=== PATIENT | female | born 1945 | race Caucasian/White ===

== ENCOUNTER 2016-10-13 09:15 | Inpatient (IN) | payer MEDICARE, OTHER ==
[2016-10-13 09:49] LABS: ABSOLUTE BASOPHILS # (AUTO) 0.1 10^3/uL (0.0-0.2); ABSOLUTE EOSINOPHILS # (AUTO) 0.1 10^3/uL (0.0-0.6); ABSOLUTE LYMPHOCYTES (AUTO) 1.2 10^3/uL (0.5-4.7); ABSOLUTE NEUT (AUTO) 9.4 10^3/uL (1.7-8.2); BASOPHILS % (AUTO) 0.5 % (0-2); EOSINOPHILS % (AUTO) 0.7 % (0-6); HEMATOCRIT 43.7 % (36.0-47.0); HEMOGLOBIN 15.1 g/dL (12.0-15.5); HGB HCT DIFFERENCE 1.6; LYMPHOCYTES % (AUTO) 9.8 % (13-45); MEAN CORPUSCULAR HEMOGLOBIN 31.9 pg (27.0-33.4); MEAN CORPUSCULAR HGB CONC 34.5 g/dL (32.0-36.0); MEAN CORPUSCULAR VOLUME 93 fl (80-97); MONOCYTES % (AUTO) 8.7 % (3-13); RED BLOOD COUNT 4.71 10^6/uL (3.72-5.28); RED CELL DISTRIBUTION WIDTH 13.1 % (11.5-14.0); SEGMENTED NEUTROPHILS % (AUTO) 80.3 % (42-78); WHITE BLOOD COUNT 11.7 10^3/uL (4.0-10.5)
[2016-10-13 09:52] LABS: PROTHROMBIN TIME 13.2 SEC (11.4-15.4)
[2016-10-13 10:11] LABS: VENOUS BLOOD BASE EXCESS 1.6 mmol/L; VENOUS BLOOD HCO3 26.3 mmol/L (20-32); VENOUS BLOOD PCO2 41.8 mmHg (35-63); VENOUS BLOOD PH 7.42 (7.30-7.42)
[2016-10-13 10:12] LABS: ALANINE AMINOTRANSFERASE 29 U/L (9-52); ALBUMIN 3.5 g/dL (3.5-5.0); ALKALINE PHOSPHATASE 207 U/L (38-126); ANION GAP 11 (5-19); ASPARTATE AMINO TRANSFERASE 19 U/L (14-36); BILIRUBIN,DIRECT 0.1 mg/dL (0.0-0.4); BILIRUBIN,TOTAL 0.7 mg/dL (0.2-1.3); BLOOD UREA NITROGEN 19 mg/dL (7-20); CALCIUM 9.5 mg/dL (8.4-10.2); CARBON DIOXIDE 29 mmol/L (22-30); CHLORIDE 103 mmol/L (98-107); CREATININE RESULT 0.65 mg/dL (0.52-1.25); GLUCOSE 124 mg/dL (75-110); POTASSIUM 5.2 mmol/L (3.6-5.0); SODIUM 143.1 mmol/L (137-145); TOTAL PROTEIN 5.9 g/dL (6.3-8.2)
[2016-10-13] MEDS ORDERED: ALBUTEROL SULFATE 0.083% NEB 2.5 MG/3 ML AMPUL NEB ONE (10:26)
--- NOTE | 2016-10-13 10:26 | ER Document Report ---
ED Respiratory Problem - General Mode of Arrival: Medic Information source: Patient, Emergency Med Personnel TRAVEL OUTSIDE OF THE [place] IN LAST 30 DAYS: No - HPI Patient complains to provider of: Cough Onset: Just prior to arrival Context: Smoker - former (quit 16 years ago). denies: Hx COPD Cough: Productive - aq Sputum amount: Small At home treatment: denies: Oxygen Associated symptoms: Other - see notes above <RICKIE ADAMSON - Last Filed: 10/13/16 13:54> <LISSETT DIEGO - Last Filed: 10/13/16 20:12> - General Chief Complaint: Shortness Of Breath Stated Complaint: SHORTNESS OF BREATH Notes: 71 year old female with history of hyperlipidemia, but no lung problems presents to the ED via EMS complaining of shortness of breath that is exacerbated with exertion which started earlier this morning. EMS reports the patient was saturating at 85% on room air (Patient is not oxygen dependent). Patient is additionally complaining of wheezing (especially when sleeping) and a productive cough with minimal amounts of sputum that has been present for 2-3 weeks, but has gotten worse over the past 6 days. Patient denies fever or chest pain, but reports that she occasionally feels chest pressure when walking. Patient explains that this chest pressure does not radiate into her arms. Patient states that she is not short of breath currently. She reports that she takes daily aspirin, vitamin B-12, and Crestor, but claims that she did not take her aspirin today. Patient denies any history of an MO or stent, but states that her younger brother had an MO last year. Patient's father had a history of congestive heart failure. (RICKIE ADAMSON) - Related Data Allergies/Adverse Reactions: diclofenac Allergy (Verified 10/13/16 11:28) doxycycline Allergy (Verified 10/13/16 11:28) Home Medications: Current Home Medications Albuterol Sulfate [Proair HFA Inhalation Aerosol 8.5 gm MDI] 2 puff IH Q4HP PRN 10/13/16 [History] Aspirin [Aspirin EC] 81 mg PO DAILY 10/13/16 [History] Cyanocobalamin (Vitamin B-12) [B-12] 1,000 mcg PO DAILY 10/13/16 [History] Fluticasone Propionate [Flonase Nasal [place] 50 Mcg/[place] 16 gm] 2 spray NASL DAILY 10/13/16 [History] Rosuvastatin Calcium [Crestor 10 mg Tablet] 10 mg PO DAILY 10/13/16 [History] Past Medical History - General Information source: Patient - Social History Smoking Status: Former Smoker - Quit 16 years ago Chew tobacco use (# tins/day): No Frequency of alcohol use: Occasional - 1-2 drinks a day Drug Abuse: None Family History: Other - Younger brother: MO (2016) Father: CHF - Past Medical History Cardiac Medical History: Reports: Hx Hypercholesterolemia Denies: Hx Heart Attack Pulmonary Medical History: Reports: None Endocrine Medical History: Denies: Hx Diabetes Mellitus Type 2 Past Surgical History: Denies: Hx Cardiac Catheterization, Hx Coronary Stent <RICKIE ADAMSON - Last Filed: 10/13/16 13:54> Review of Systems - Review of Systems Constitutional: No symptoms reported EENT: No symptoms reported Cardiovascular: No symptoms reported. denies: Chest pain - but reports chest pressure Respiratory: See HPI, Cough, Short of breath, Sputum - minimal, Wheezing. denies: Hemoptysis Gastrointestinal: No symptoms reported Genitourinary: No symptoms reported Female Genitourinary: No symptoms reported Musculoskeletal: No symptoms reported Skin: No symptoms reported Hematologic/Lymphatic: No symptoms reported Neurological/Psychological: No symptoms reported <RICKIE ADAMSON - Last Filed: 10/13/16 13:54> Physical Exam <RICKIE ADAMSON - Last Filed: 10/13/16 13:54> <LISSETT DIEGO - Last Filed: 10/13/16 20:12> - Vital signs Vitals: Temp Pulse Resp BP Pulse Ox 98.4 F 70 18 116/78 99 10/13/16 09:30 10/13/16 09:30 10/13/16 09:30 10/13/16 09:30 10/13/16 09:30 - Notes Notes: GENERAL: Alert, interacts well. No acute distress. HEAD: Normocephalic, atraumatic. EYES: Pupils equal, round, and reactive to light. Extraocular movements intact. ENT: Oral mucosa moist, tongue midline. NECK: Full range of motion. Supple. Trachea midline. LUNGS: Clear to auscultation bilaterally, no wheezes, rales, or rhonchi. No respiratory distress. Patient is saturating at 98% on non-rebreather (10L) with good wave form per interpretation from Dr. Diego. HEART: Regular rate and rhythm. No murmurs, gallops, or rubs. ABDOMEN: Soft, non-tender. Non-distended. EXTREMITIES: Moves all 4 extremities spontaneously. No edema, posterior tibialis and dorsalis pedis pulses 2/4 bilaterally. No cyanosis. NEUROLOGICAL: Alert and oriented x3. Normal speech. PSYCH: Normal affect, normal mood. SKIN: Warm, dry, normal turgor. No rashes or lesions noted. (RICKIE ADAMSON) Course - Laboratory Result Diagrams: 10/13/16 09:30 10/13/16 09:30 - Diagnostic Test Radiology reviewed: Image reviewed, Reports reviewed - Chest X-ray Impression: Small left pleural effusion is identified and I cannot exclude some associated atelectasis or infiltrate in the left lung base. Right lung is clear and well expanded. There is evidence for obstructive lung disease. Chest CT Impression : Bilateral pulmonary emboli are present. The clot burden is moderate. There is no saddle embolus. Evidence of pulmonary emphysema. There are marked chronic changes in the left lower lobe with possible superimposed pneumonia. Significant atelectasis is present in the left lower lobe. There is a small left pleural effusion. Consider follow-up CT after treatment to be certain that there is no mass. There is mild right hilar adenopathy. - EKG Interpretation by Ia EKG shows normal: Sinus rhythm, Early, Intervals. abnormal: ST-T Waves - T-wave inversion in V1-V3. No ST elevation or depression. Rate: Normal - Sinus rate at 83 P Waves: Other - poor P-waves - Consults [facility] Transfer Line Time consulted: 11:11 Dr. Almendarez Time consulted: 12:19 Dr. Mi Time consulted: 13:00 <RICKIE ADAMSON - Last Filed: 10/13/16 13:54> - Laboratory Result Diagrams: 10/13/16 09:30 10/13/16 09:30 <LISSETT DIEGO - Last Filed: 10/13/16 20:12> - Re-evaluation Re-evalutation: 10/13/16 11:04 Patient was informed that her troponin was elevated (0.155) and will be transferred to a another facility for a non-STEMI. Patient requested that she be transferred to [facility]. (RICKIE ADAMSON) 10/13/16 20:12 CBC shows slight leukocytosis, coags normal, blood gas unremarkable, CP shows slightly elevated potassium of 5.2, alkaline phosphatase somewhat elevated 207, cardiac enzymes show troponin leak of 0.155, CT scan of the chest was ordered after the chest x-ray showed possible atelectasis but no convincing evidence of pneumonia. CT angiogram of the chest showed bilateral pulmonary emboli with moderate clot burden. This explains the troponin leak. I rediscussed the patient with Dr. Almendarez from [facility] who agrees that the patient does not need to be transferred anymore as this is not a non-STEMI is simply troponin leak due to the stress of the bilateral pulmonary emboli. Discussed patient with Dr. Mi who agrees to accept the patient to her service, agrees with starting heparin drip. Discussed with the patient and she is agreeable to stay at this hospital. (LISSETT DIEGO) - Vital Signs Vital signs: Temp Pulse Resp BP Pulse Ox 98.2 F 97 19 111/72 95 10/13/16 16:42 10/13/16 16:42 10/13/16 18:21 10/13/16 18:21 10/13/16 18:21 - Laboratory Laboratory results interpreted by me: 10/13/16 10/13/16 10/13/16 09:30 09:30 09:30 WBC 11.7 H Seg Neutrophils % 80.3 H Lymphocytes % 9.8 L Absolute Neutrophils 9.4 H Potassium 5.2 H Glucose 124 H Alkaline Phosphatase 207 H Creatine Kinase 28 L Total Protein 5.9 L Urine Ketones 10/13/16 12:00 WBC Seg Neutrophils % Lymphocytes % Absolute Neutrophils Potassium Glucose Alkaline Phosphatase Creatine Kinase Total Protein Urine Ketones TRACE H - Consults [facility] Transfer Line Reason for consultation: 10/13/16 11:11 [facility] Transfer Line was called regarding transfer of the patient (non- STEMI). Informed that the patient will be placed on a wait list. (RICKIE ADAMSON) Dr. Almendarez Reason for consultation: 10/13/16 12:19 Patient was discussed with Dr. Almendarez and accepts her on the wait list. Dr. Almendarez states that they have patients up for discharge today, so they expect back to have a bed open later today. 10/13/16 12:59 After the patient was diagnosed with bilateral pulmonary emboli, Dr. Almendarez was called and reports that the patient will no longer need to be transferred to [facility] and to go ahead and admit the patient at [facility]. (RICKIE ADAMSON) Dr. Mi Reason for consultation: 10/13/16 13:[address] Almendarez from [facility], the patient was discussed with Dr. Mi and she agrees to admit the patient. (RICKIE ADAMSON) Critical Care Note - Critical Care Note Total time excluding time spent on procedures (mins): 35 <RICKIE ADAMSON - Last Filed: 10/13/16 13:54> <LISSETT DIEGO - Last Filed: 10/13/16 20:12> - Critical Care Note Comments: Patient was treated for hypoxemia, a troponin bump, and the bilateral pulmonary emboli. (RICKIE ADAMSON) Discharge <RICKIE ADAMSON - Last Filed: 10/13/16 13:54> - Discharge Admitting Provider: Ynes Mi Unit Admitted: ICU <LISSETT DIEGO - Last Filed: 10/13/16 20:12> - Discharge Clinical Impression: Bilateral pulmonary embolism, Elevated troponin, Hypoxia Condition: Serious Disposition: ADMITTED INPATIENT Scribe Attestation: 10/13/16 20:12 I personally performed the services described in the documentation, reviewed and edited the documentation which was dictated to the scribe in my presence, and it accurately records my words and actions. (LISSETT DIEGO) Scribe Documentation - Scribe Written by Evan:: Evan Quach, 10/13/2016 1158 acting as scribe for :: Johnathon <RICKIE ADAMSON - Last Filed: 10/13/16 13:54>
[2016-10-13 10:44] LABS: CREATINE KINASE MB 1.64 ng/mL (<4.55)
[2016-10-13 10:46] LABS: TROPONIN I 0.155 ng/mL
[2016-10-13] MEDS ORDERED: ASPIRIN 325 MG TABLET PO ONE (11:10)
[2016-10-13 12:18] LABS: APPEARANCE,URINE CLEAR; BILIRUBIN,URINE NEGATIVE (NEGATIVE); GLUCOSE, URINE NEGATIVE (NEGATIVE); KETONES,URINE TRACE mg/dL (NEGATIVE); LEUKOCYTE ESTERASE,URINE NEGATIVE (NEGATIVE); NITRITE,URINE NEGATIVE (NEGATIVE); PROTEIN,URINE NEGATIVE (NEGATIVE); UROBILINOGEN,URINE NEGATIVE mg/dL (<2.0)
[2016-10-13] MEDS ORDERED: HEPARIN SOD (PORCINE) 1,000 UNIT/ML 10 ML VIAL IV PRN ×2 (13:09→14:12)
[2016-10-13] MEDS ORDERED: HEPARIN SOD (PORCINE) 1,000 UNIT/ML 10 ML VIAL IV ONE (13:09)
[2016-10-13] MEDS ORDERED: HEPARIN SODIUM,PORCINE/D5W 250 ML IV PRN ×2 (13:09→14:12)
--- NOTE | 2016-10-13 13:35 | EKG REPORT ---
SEVERITY:- ABNORMAL ECG - SINUS RHYTHM BORDERLINE R WAVE PROGRESSION, ANTERIOR LEADS NONSPECIFIC T ABNORMALITIES, ANTERIOR LEADS : Confirmed by: Yon Soria MD 13-Oct-2016 13:34:15
[2016-10-13] MEDS ORDERED: ONDANSETRON HCL INJ/PF 4 MG/2 ML SDV IV PRN (14:04)
[2016-10-13] MEDS ORDERED: IPRATROPIUM/ALBUTEROL 0.5-2.5 MG/3 ML AMPUL NEB PRN (14:04)
[2016-10-13] MEDS ORDERED: MAG HYDROX/AL HYDROX/SIMETH SUSP 30 ML UDCUP PO PRN (14:04)
[2016-10-13] MEDS ORDERED: ACETAMINOPHEN 325 MG TABLET PO PRN (14:04)
[2016-10-13] MEDS ORDERED: OXYCODONE-ACETAMINOPHEN 5-325 MG TABLET PO PRN (14:04)
[2016-10-13] MEDS ORDERED: FLUTICASONE NASAL SPRAY 50 MCG/SPRY 120 SPRAY/16 GM NASL PRN (14:13)
[2016-10-13] MEDS ORDERED: MORPHINE SULFATE 10 MG/ML INJ IV PRN (14:20)
--- NOTE | 2016-10-13 16:36 | PDOC H&P ---
History of Present Illness Admission Date/PCP: 10/13/16 13:56 PAUL CLINE MD History of Present Illness: GREYSON MCADAMS is a 71 year old female with a history of hyperlipidemia who presents to the emergency department with approximately one week of progressive shortness of breath. Patient reports that she's been unable to get her breath and she's been able to ambulate without becoming short of breath. She reports episodes of her heart racing. She denies any fevers or chills but for the same amount of time has had a dry cough for about 7 days. She reports normally she is quite active. Apparently one month ago she had some difficulty with her allergies which she found unusual as she has lived here for the last 30 years. She did have resolution of her shortness of breath at that time with Flonase. Patient also reports having been evaluated in the past by Dr. Ford of cardiology for SVT. Here in the emergency department, patient is found to have an elevated troponin very mildly and a CTA that is positive for bilateral PEs with moderate clot burden. She is referred to hospital service for evaluation and treatment. Past Medical History Cardiac Medical History: Reports: Hyperlipidema Denies: Myocardial Infarction Pulmonary Medical History: Reports: None, Asthma Endocrine Medical History: Denies: Diabetes Mellitus Type 2 Past Surgical History Past Surgical History: Reports: None Denies: Cardiac Catheterization, Coronary Stent Social History Smoking Status: Former Smoker - Quit 16 years ago Cigarettes Packs Per Day: 2 Number of Years Smokin Frequency of Alcohol Use: Social Amount of Alcoholic Beverages Per Day: 1-2 drinks daily Hx Recreational Drug Use: No Hx Prescription Drug Abuse: No - Advance Directive Resuscitation Status: Full Code Surrogate healthcare decision maker:: Significant other Ramiro Snowden Family History Family History: CAD, Other - Younger brother: PA (2016) Father: CHF Mother was on blood thinners Parental Family History Reviewed: Yes Children Family History Reviewed: Yes Sibling(s) Family History Reviewed.: Yes Medication/Allergy Home Medications: Albuterol Sulfate [Proair HFA Inhalation Aerosol 8.5 gm MDI] 2 puff IH Q4HP PRN 10/13/16 Aspirin [Aspirin EC] 81 mg PO DAILY 10/13/16 Cyanocobalamin (Vitamin B-12) [B-12] 1,000 mcg PO DAILY 10/13/16 Fluticasone Propionate [Flonase Nasal [place] 50 Mcg/[place] 16 gm] 2 spray NASL DAILY 10/13/16 Rosuvastatin Calcium [Crestor 10 mg Tablet] 10 mg PO DAILY 10/13/16 Allergies/Adverse Reactions: diclofenac Allergy (Verified 10/13/16 11:28) doxycycline Allergy (Verified 10/13/16 11:28) Review of Systems Constitutional: PRESENT: fatigue. ABSENT: chills, fever(s), headache(s), weight gain, weight loss Eyes: ABSENT: visual disturbances Ears: ABSENT: hearing changes Cardiovascular: PRESENT: chest pain, dyspnea on exertion, orthropnea, palpitations. ABSENT: edema Respiratory: PRESENT: cough, dyspnea. ABSENT: hemoptysis, sputum Gastrointestinal: PRESENT: constipation. ABSENT: abdominal pain, diarrhea, hematemesis, hematochezia, nausea, vomiting Genitourinary: ABSENT: dysuria, hematuria Musculoskeletal: ABSENT: joint swelling Integumentary: ABSENT: rash, wounds Neurological: ABSENT: abnormal gait, abnormal speech, confusion, dizziness, focal weakness, syncope Psychiatric: ABSENT: anxiety, depression, homidical ideation, suicidal ideation Endocrine: ABSENT: cold intolerance, heat intolerance, polydipsia, polyuria Hematologic/Lymphatic: ABSENT: easy bleeding, easy bruising Physical Exam Vital Signs: Temp Pulse Resp BP Pulse Ox 98.4 F 70 14 129/74 H 95 10/13/16 09:30 10/13/16 09:30 10/13/16 12:06 10/13/16 12:06 10/13/16 12:06 Intake & Output 10/12/16 10/13/16 10/14/16 06:59 06:59 06:59 Weight 61.4 kg General appearance: PRESENT: severe distress, well-developed, well-nourished Head exam: PRESENT: atraumatic, normocephalic Eye exam: PRESENT: conjunctiva pink, EOMI, PERRLA. ABSENT: scleral icterus Ear exam: PRESENT: normal external ear exam Mouth exam: PRESENT: dry mucosa, tongue midline Neck exam: ABSENT: JVD, lymphadenopathy, thyromegaly, tracheal deviation Respiratory exam: PRESENT: accessory muscle use, crackles - Left lower lobe, symmetrical, tachypnea. ABSENT: clear to auscultation saad, rales, rhonchi, wheezes Cardiovascular exam: PRESENT: RRR, +S1, +S2, tachycardia. ABSENT: diastolic murmur, gallop, rubs, systolic murmur Pulses: PRESENT: normal dorsalis pedis pul Vascular exam: PRESENT: normal capillary refill GI/Abdominal exam: PRESENT: normal bowel sounds, soft. ABSENT: distended, firm , guarding, mass, organolmegaly, rebound, rigid, tenderness Rectal exam: PRESENT: deferred Extremities exam: PRESENT: full ROM. ABSENT: calf tenderness, clubbing, pedal edema, tenderness Neurological exam: PRESENT: alert, awake, oriented to person, oriented to place , oriented to time, oriented to situation, CN II-XII grossly intact. ABSENT: motor sensory deficit Psychiatric exam: PRESENT: anxious, appropriate affect, normal mood. ABSENT: homicidal ideation, suicidal ideation Skin exam: PRESENT: dry, intact, warm. ABSENT: cyanosis, rash Results Laboratory Results: 10/13/16 10/13/16 10/13/16 09:30 09:30 09:30 WBC 11.7 H Hgb 15.1 Hct 43.7 Plt Count 275 INR 0.97 VBG pH VBG pCO2 VBG HCO3 VBG Base Excess Sodium 143.1 Potassium 5.2 H Chloride 103 Carbon Dioxide 29 Anion Gap 11 BUN 19 Creatinine 0.65 Glucose 124 H Lactic Acid Calcium 9.5 Magnesium Total Bilirubin 0.7 Direct Bilirubin 0.1 AST 19 ALT 29 Alkaline Phosphatase 207 H Creatine Kinase CK-MB (CK-2) Troponin I Total Protein 5.9 L Albumin 3.5 Ur Specific [place] 10/13/16 10/13/16 10/13/16 09:30 09:30 09:30 WBC Hgb Hct Plt Count INR VBG pH VBG pCO2 VBG HCO3 VBG Base Excess Sodium Potassium Chloride Carbon Dioxide Anion Gap BUN Creatinine Glucose Lactic Acid Calcium Magnesium 2.2 Total Bilirubin Direct Bilirubin AST ALT Alkaline Phosphatase Creatine Kinase 28 L CK-MB (CK-2) 1.64 Troponin I 0.155 Total Protein Albumin Ur Specific [place] 10/13/16 10/13/16 10/13/16 09:45 09:45 12:00 WBC Hgb Hct Plt Count INR VBG pH 7.42 VBG pCO2 41.8 VBG HCO3 26.3 VBG Base Excess 1.6 Sodium Potassium Chloride Carbon Dioxide Anion Gap BUN Creatinine Glucose Lactic Acid 1.6 Calcium Magnesium Total Bilirubin Direct Bilirubin AST ALT Alkaline Phosphatase Creatine Kinase CK-MB (CK-2) Troponin I Total Protein Albumin Ur Specific [place] 1.030 Impressions: Chest X-Ray 10/13/16 09:18 IMPRESSION: Small left pleural effusion is identified and I cannot exclude some associated atelectasis or infiltrate in the left lung base. Right lung is clear and well expanded. There is evidence for obstructive lung disease. Chest/Abdomen CTA 10/13/16 11:08 IMPRESSION: 1. Bilateral pulmonary emboli are present. The clot burden is moderate. There is no saddle embolus. 2. Pulmonary emphysema. 3. There are marked chronic changes in the left lower lobe with possible superimposed pneumonia. Significant atelectasis is present in the left lower lobe. There is a small left pleural effusion. Consider follow-up CT after treatment to be certain that there is no mass. 3. There is mild right hilar adenopathy. Assessment & Plan - Diagnosis (1) Bilateral pulmonary embolism Is this a current diagnosis for this admission?: YesPlan: Patient will be admitted to the ICU due to her elevated troponin as well as her increased oxygen needs as she is on a simple mask. Will obtain a stat echo. Patient started on treatment dose heparin. Will consult hematology oncology for their input. Suspect peripheral clot. Will obtain bilateral lower Doppler. Morphine for pain. (2) Elevated troponin Is this a current diagnosis for this admission?: YesPlan: Likely secondary to right ventricular heart strain. Will consult cardiology. Will obtain echocardiogram. Will trend serial cardiac enzymes. Patient will be on heparin drip. Patient has received aspirin. Will place on daily aspirin. Continue patient's home Lipitor. At this time, patient's relative hypotension is a contraindication to any antihypertensives for possible non-STEMI. (3) Acute hypoxemic respiratory failure Is this a current diagnosis for this admission?: YesPlan: Continue oxygen to maintain oxygen saturation greater than 95%. (4) Leukocytosis Qualifiers: Leukocytosis type: unspecified Qualified Code(s): D72.829 - Elevated white blood cell count, unspecified Is this a current diagnosis for this admission?: YesPlan: This is likely stress reaction to her clot. (5) Dehydration, mild Is this a current diagnosis for this admission?: YesPlan: Patient with mild dehydration evidenced by ketonuria and high specific gravity. Will begin patient on IV fluids judiciously. (6) SVT (supraventricular tachycardia) Is this a current diagnosis for this admission?: YesPlan: Patient reports a history of SVT for which she takes no medication. She reports she's been evaluated by an division officer weapons department. She was offered surgical intervention at that time her medication and she declined both. We will watch patient closely in the ICU. Will consult cardiology. - Time Time Spent: 50 to 70 Minutes Critical Time spent with patient: 35 or more minutes - Inpatient Certification Based on my medical assessment, after consideration of the patient's comorbidities, presenting symptoms, or acuity I expect that the services needed warrant INPATIENT care.: Yes I certify that my determination is in accordance with my understanding of Medicare's requirements for reasonable and necessary INPATIENT services [42 CFR 412.3e].: Yes Medical Necessity: Need For Continuous Telemetry Monitoring, Risk of Complication if Not Cared For in Hospital Post Hospital Care: D/C Travel Attendants Documentation
[2016-10-13] MEDS: DOCUSATE SODIUM 100 MG CAPSULE PO SCH (18:01)
[2016-10-13] MEDS: NORMAL SALINE 1000 ML 1,000 ML IV PRN (18:02)
--- NOTE | 2016-10-13 18:49 | XCELERA REPORT ---
[address] [address] Transthoracic Echocardiogram Report Name: GREYSON MCADAMS Age: 71 yrs Gender: Female : 1945 Patient Status: Inpatient Patient Location: \S\[facility]\S\A Study Date: 10/13/2016 02:42 PM Height: 66 in Weight: 135 lb BSA: 1.7 m2 Procedure: A complete two-dimensional transthoracic echocardiogram was performed (2D, M-mode, spectral and color flow Doppler). The study was technically difficult with many images being suboptimal in quality. Reason For Study: lauren aleman PE Ordering Physician: BRANDEN CONKLIN Performed By: Theo Escobar Interpretation Summary The left ventricular ejection fraction is normal. There is normal left ventricular wall thickness. Doppler measurements suggest pseudonormalized left ventricular relaxation, which is associated with grade II/IV or mild to moderate diastolic dysfunction The left ventricle is grossly normal size. Wall motion cannot be accurately commented on, but no definite regional wall motion abnormalities noted. The right ventricle is moderately dilated. The right ventricular systolic function is mildly reduced. The right ventricle appears to be hypertrophied The left atrial size is normal. The right atrium is mildly dilated. There is no mitral valve stenosis. There is a trace amount of mitral regurgitation No aortic regurgitation is present. There is no aortic valve stenosis There is a mild amount of tricuspid regurgitation There is moderate pulmonary hypertension by echo Right ventricular systolic pressure is estimated to be elevated at 50- 60mmHg. The aortic root is not well visualized but is probably normal size. The inferior vena cava appeared normal and decreased > 50% with respiration (RAP 5-10 mmHg) Minimal pericardial effusion. MMode/2D Measurements \T\ Calculations RVDd: 2.7 cm LVIDd: 4.7 cm FS: 39.2 % Ao root diam: 2.6 cm IVSd: 0.68 cm LVIDs: 2.9 cm EDV(Teich): 104.8 ml LVPWd: 0.69 cm ESV(Teich): 31.9 ml Ao root area: 5.4 cm2 EF(Teich): 69.6 % LA dimension: 3.0 cm Doppler Measurements \T\ Calculations MV E max oral: MV P1/2t max oral: Ao V2 max: LV V1 max P.1 cm/sec 63.2 cm/sec 132.3 cm/sec 2.6 mmHg MV A max oral: MV P1/2t: 64.1 msec Ao max PG: LV V1 max: 92.7 cm/sec 7.0 mmHg 81.2 cm/sec MV E/A: 0.69 MVA(P1/2t): 3.4 cm2 MV dec slope: 289.0 cm/sec2 PA V2 max: TR max oral: RAP systole: 80.5 cm/sec 349.4 cm/sec 10.0 mmHg PA max PG: TR max P.8 mmHg 2.6 mmHg RVSP(TR): 58.8 mmHg Left Ventricle The left ventricle is grossly normal size. There is normal left ventricular wall thickness. The left ventricular ejection fraction is normal. Doppler measurements suggest pseudonormalized left ventricular relaxation, which is associated with grade II/IV or mild to moderate diastolic dysfunction. Wall motion cannot be accurately commented on, but no definite regional wall motion abnormalities noted. Right Ventricle The right ventricle is moderately dilated. The right ventricle appears to be hypertrophied. The right ventricular systolic function is mildly reduced. Atria The right atrium is mildly dilated. The left atrial size is normal. Interarterial septum not well visualized and not well dopplered. Cannot comment on ASD/PFO presence. Mitral Valve The mitral valve is grossly normal. There is no mitral valve stenosis. There is a trace amount of mitral regurgitation. Aortic Valve The aortic valve is grossly normal. There is no aortic valve stenosis. No aortic regurgitation is present. Tricuspid Valve The tricuspid valve is not well visualized secondary to technical limitations. There is no tricuspid stenosis. There is a mild amount of tricuspid regurgitation. There is moderate pulmonary hypertension by echo. Right ventricular systolic pressure is estimated to be elevated at 50- 60mmHg. Pulmonic Valve The pulmonic valve is not well visualized. Great Vessels The aortic root is not well visualized but is probably normal size. The inferior vena cava appeared normal and decreased > 50% with respiration (RAP 5-10 mmHg). Effusions Minimal pericardial effusion. : BRANDEN CONKLIN > Raul Valero
--- NOTE | 2016-10-13 20:22 | PDOC CONSULTATION ---
Consultation Consult Date: 10/13/16 Attending physician:: BRANDEN CONKLIN Consult reason:: Pulmonary embolism History of Present Illness Admission Date/PCP: 10/13/16 14:05 PAUL CLINE MD Patient complains of: Dyspnea and palpitations History of Present Illness: GREYSON MCADAMS is a 71 year old female with a history of hyperlipidemia who presents to the emergency department with approximately one week of progressive shortness of breath. Patient reports that she's been unable to get her breath and she's been able to ambulate without becoming short of breath. She reports episodes of her heart racing. She denies any fevers or chills but for the same amount of time has had a dry cough for about 7 days. She reports normally she is quite active. Apparently one month ago she had some difficulty with her allergies which she found unusual as she has lived here for the last 30 years. She did have resolution of her shortness of breath at that time with Flonase. Patient also reports having been evaluated in the past by Dr. Ford of cardiology for SVT. Here in the emergency department, patient is found to have an elevated troponin very mildly and a CTA that is positive for bilateral PEs with moderate clot burden. Past Medical History Cardiac Medical History: Reports: Hyperlipidema Denies: Myocardial Infarction Pulmonary Medical History: Reports: None, Asthma Endocrine Medical History: Denies: Diabetes Mellitus Type 2 Past Surgical History Past Surgical History: Reports: None Denies: Cardiac Catheterization, Coronary Stent Social History Information Source: Patient Smoking Status: Former Smoker - Quit 16 years ago Cigarettes Packs Per Day: 2 Number of Years Smokin Frequency of Alcohol Use: Occasional Hx Recreational Drug Use: No Hx Prescription Drug Abuse: No - Advance Directive Resuscitation Status: Full Code Surrogate healthcare decision maker:: Patient's Family History Family History: Reviewed & Not Pertinent, Other - Younger brother: [place] (2016) Father: CHF Parental Family History Reviewed: Yes Children Family History Reviewed: Yes Sibling(s) Family History Reviewed.: Yes Medication/Allergy Home Medications: Albuterol Sulfate [Proair HFA Inhalation Aerosol 8.5 gm MDI] 2 puff IH Q4HP PRN 10/13/16 Aspirin [Aspirin EC] 81 mg PO DAILY 10/13/16 Cyanocobalamin (Vitamin B-12) [B-12] 1,000 mcg PO DAILY 10/13/16 Fluticasone Propionate [Flonase Nasal Pelham 50 Mcg/P[place]ham 16 gm] 2 spray NASL DAILY 10/13/16 Rosuvastatin Calcium [Crestor 10 mg Tablet] 10 mg PO DAILY 10/13/16 Allergies/Adverse Reactions: diclofenac Allergy (Verified 10/13/16 11:28) doxycycline Allergy (Verified 10/13/16 11:28) Review of Systems Constitutional: ABSENT: chills, fever(s), headache(s), weight gain, weight loss Eyes: ABSENT: visual disturbances Ears: ABSENT: hearing changes Cardiovascular: PRESENT: dyspnea on exertion, orthropnea, palpitations. ABSENT : chest pain, edema Respiratory: ABSENT: cough, hemoptysis Gastrointestinal: ABSENT: abdominal pain, constipation, diarrhea, hematemesis, hematochezia, nausea, vomiting Genitourinary: ABSENT: dysuria, hematuria Musculoskeletal: ABSENT: joint swelling Integumentary: ABSENT: rash, wounds Neurological: ABSENT: abnormal gait, abnormal speech, confusion, dizziness, focal weakness, syncope Psychiatric: ABSENT: anxiety, depression, homidical ideation, suicidal ideation Endocrine: ABSENT: cold intolerance, heat intolerance, polydipsia, polyuria Hematologic/Lymphatic: ABSENT: easy bleeding, easy bruising Physical Exam Vital Signs: Temp Pulse Resp BP Pulse Ox 98.2 F 89 19 111/72 95 10/13/16 16:42 10/13/16 20:00 10/13/16 18:21 10/13/16 18:21 10/13/16 18:21 Intake & Output 10/12/16 10/13/16 10/14/16 06:59 06:59 06:59 Intake Total 262 Balance 262 Weight 60.8 kg General appearance: PRESENT: no acute distress, well-developed, well-nourished Head exam: PRESENT: atraumatic, normocephalic Eye exam: PRESENT: conjunctiva pink, EOMI, PERRLA. ABSENT: scleral icterus Ear exam: PRESENT: normal external ear exam Mouth exam: PRESENT: moist, tongue midline Neck exam: ABSENT: carotid bruit, JVD, lymphadenopathy, thyromegaly Respiratory exam: PRESENT: wheezes. ABSENT: rales, rhonchi Cardiovascular exam: PRESENT: RRR, systolic murmur. ABSENT: diastolic murmur, rubs Pulses: PRESENT: normal dorsalis pedis pul, +1 pedal pulses bilateral Vascular exam: PRESENT: normal capillary refill GI/Abdominal exam: PRESENT: normal bowel sounds, soft. ABSENT: distended, guarding, mass, organolmegaly, rebound, tenderness Rectal exam: PRESENT: deferred Extremities exam: PRESENT: full ROM. ABSENT: calf tenderness, clubbing, pedal edema Musculoskeletal exam: ABSENT: ambulatory, deformity, dislocation, full ROM, normal inspection, tenderness, other Neurological exam: PRESENT: alert, awake, oriented to person, oriented to place , oriented to time, oriented to situation, CN II-XII grossly intact. ABSENT: motor sensory deficit Psychiatric exam: PRESENT: appropriate affect, normal mood. ABSENT: homicidal ideation, suicidal ideation Skin exam: PRESENT: dry, intact, warm. ABSENT: cyanosis, rash Results EKG Comments: NSR, minor non specific T inversion V1-V3 Impressions: Venous Doppler Study 10/13/16 00:00 IMPRESSION: Hypoechoic clot in 1 of the paired right gastrocnemius veins in the calf. Remainder of the bilateral lower extremity venous Doppler study is otherwise unremarkable Chest X-Ray 10/13/16 09:18 IMPRESSION: Small left pleural effusion is identified and I cannot exclude some associated atelectasis or infiltrate in the left lung base. Right lung is clear and well expanded. There is evidence for obstructive lung disease. Chest/Abdomen CTA 10/13/16 11:08 IMPRESSION: 1. Bilateral pulmonary emboli are present. The clot burden is moderate. There is no saddle embolus. 2. Pulmonary emphysema. 3. There are marked chronic changes in the left lower lobe with possible superimposed pneumonia. Significant atelectasis is present in the left lower lobe. There is a small left pleural effusion. Consider follow-up CT after treatment to be certain that there is no mass. 3. There is mild right hilar adenopathy. Assessment & Plan - Diagnosis (1) Acute hypoxemic respiratory failure Is this a current diagnosis for this admission?: Yes (2) Bilateral pulmonary embolism Is this a current diagnosis for this admission?: Yes (3) Elevated troponin Is this a current diagnosis for this admission?: Yes (4) Tachycardia Is this a current diagnosis for this admission?: Yes - Notes Notes: Troponin I elevation is related to bilateral pulmonary embolism. 2-D echo shows enlarged right ventricle and right ventricular strain on EKG. Agree with current management plans. Patient may benefit from a nuclear stress test but this will be scheduled as an outpatient. Acute hypoxic respiratory failure: Continue oxygen supplementation. This is due to combination of COPD/emphysema and pulmonary embolism. Bilateral pulmonary embolism: Probably acute. No definite precipitating factors noted except for age. May consider hematologic assessment. Tachycardia: Review of EKG strip shows just sinus tachycardia. Most likely secondary to respiratory failure and pulmonary embolism. Recommend adequate oxygenation. May consider calcium channel max such as Cardizem if needed. As usual I thank Dr. Mi very much for the kind referral. - Time Time Spent: 30 to 50 Minutes - CODE STATUS was discussed, patient remains full code. Surrogate decision-maker patient's . Multiple medical problems were addressed.More than 50% of the time spent coordinating care, discussing management plans with involved caregivers. Management plans discussed with involved personnels. Medical decision making was of moderate to high complexity , patient's has multiple severe comorbidities. Medications reviewed and adjusted accordingly: Yes
[2016-10-13 20:37] LABS: PROTHROMBIN TIME 14.6 SEC (11.4-15.4)
[2016-10-13 21:05] LABS: CREATINE KINASE MB 1.6 ng/mL (<4.55); TROPONIN I 0.129 ng/mL
[2016-10-13] MEDS: ATORVASTATIN CALCIUM 10 MG TABLET PO SCH (21:34)
[2016-10-13] MEDS: ALPRAZOLAM 0.25 MG TABLET PO PRN (21:34)
[2016-10-13 21:54] LABS: PARTIAL THROMBOPLASTIN TIME > 235.0 SEC (23.5-35.8)
[2016-10-14 02:36] LABS: CREATINE KINASE MB 1.35 ng/mL (<4.55); TROPONIN I 0.084 ng/mL
[2016-10-14 03:58] LABS: ABSOLUTE BASOPHILS # (AUTO) 0.1 10^3/uL (0.0-0.2); ABSOLUTE EOSINOPHILS # (AUTO) 0.2 10^3/uL (0.0-0.6); ABSOLUTE LYMPHOCYTES (AUTO) 1.4 10^3/uL (0.5-4.7); ABSOLUTE MONOCYTES (AUTO) 1.1 10^3/uL (0.1-1.4); ABSOLUTE NEUT (AUTO) 7.2 10^3/uL (1.7-8.2); BASOPHILS % (AUTO) 0.6 % (0-2); EOSINOPHILS % (AUTO) 1.9 % (0-6); HEMATOCRIT 36.7 % (36.0-47.0); HGB HCT DIFFERENCE 0.8; LYMPHOCYTES % (AUTO) 13.8 % (13-45); MEAN CORPUSCULAR HEMOGLOBIN 31.7 pg (27.0-33.4); MEAN CORPUSCULAR HGB CONC 34.2 g/dL (32.0-36.0); MEAN CORPUSCULAR VOLUME 93 fl (80-97); RED BLOOD COUNT 3.95 10^6/uL (3.72-5.28); RED CELL DISTRIBUTION WIDTH 13.3 % (11.5-14.0); SEGMENTED NEUTROPHILS % (AUTO) 72.7 % (42-78); WHITE BLOOD COUNT 9.9 10^3/uL (4.0-10.5)
[2016-10-14 04:11] LABS: HEMOGLOBIN 12.5 g/dL (12.0-15.5)
[2016-10-14 04:15] LABS: ALANINE AMINOTRANSFERASE 31 U/L (9-52); ALBUMIN 2.9 g/dL (3.5-5.0); ALKALINE PHOSPHATASE 176 U/L (38-126); ANION GAP 9 (5-19); ASPARTATE AMINO TRANSFERASE 16 U/L (14-36); BILIRUBIN,DIRECT 0.2 mg/dL (0.0-0.4); BILIRUBIN,TOTAL 0.6 mg/dL (0.2-1.3); BLOOD UREA NITROGEN 18 mg/dL (7-20); CALCIUM 8.6 mg/dL (8.4-10.2); CARBON DIOXIDE 26 mmol/L (22-30); CHLORIDE 107 mmol/L (98-107); CREATININE RESULT 0.65 mg/dL (0.52-1.25); GLUCOSE 110 mg/dL (75-110); SODIUM 141.5 mmol/L (137-145); TOTAL PROTEIN 5.2 g/dL (6.3-8.2)
[2016-10-14 04:29] LABS: POTASSIUM 4.1 mmol/L (3.6-5.0)
[2016-10-14] MEDS: LANSOPRAZOLE 15 MG TAB.RAP.DR PO SCH (05:09)
[2016-10-14] MEDS: NORMAL SALINE 1000 ML 1,000 ML IV PRN (05:10)
[2016-10-14 08:38] LABS: CREATINE KINASE MB 1.55 ng/mL (<4.55); TROPONIN I 0.067 ng/mL
--- NOTE | 2016-10-14 09:18 | PDOC PROGRESS REPORT ---
Subjective Progress Note for:: 10/14/16 Subjective:: Patient seems to be doing better with gradual improvement. Patient still short of breath but significantly improved. Pt is denying any chest arm or neck discomfort. Patient denying any PND, orthopnea. Patient denied any sustained palpitations, dizziness, syncope, near syncope. Patient denying any fever chills. Patient denying any other significant discomfort. Patient is maintaining sinus rhythm. Intermittent sinus tachycardia noted. Review of systems: Rest review of systems negative. Medications: Medications have been reviewed. Physical Exam Vital Signs: Temp Pulse Resp BP Pulse Ox 97.5 F 88 20 118/78 93 10/14/16 04:00 10/14/16 08:50 10/14/16 08:50 10/14/16 06:23 10/14/16 08:50 Intake & Output 10/13/16 10/14/16 10/15/16 06:59 06:59 06:59 Intake Total 2040 Output Total 750 Balance 1290 Weight 64.1 kg Exam: GENERAL: well-nourished and in no acute distress. Alert and oriented x3 HEAD: Atraumatic, normocephalic. EYES: Pupils equal round and reactive to light, extraocular movements intact, sclera anicteric, conjunctiva are normal. ENT: TMs normal, nares patent, oropharynx clear without exudates. Moist mucous membranes. No oral ulcerations or bleeding gums noted NECK: supple without lymphadenopathy. Trachea is central. No cervical or axillary lymphadenopathy noted. Carotids are 2+, JVD WNL LUNGS: Respiration seems nonlabored, no significant accessory muscle action noted. Breath sounds clear to auscultation bilaterally and equal noted. No wheezes rales or rhonchi noted. No significant dullness noted on percussion. CHEST: Palpation of the chest wall shows no significant chest wall tenderness. No other significant abnormalities noted. HEART: [place] [employer], No PSH, 1/6 AMISHA aortic area, 1/6 vazquez systolic murmur mitral area, no rubs, no gallops. ABDOMEN: Soft, no significant tenderness appreciated, normoactive bowel sounds. No guarding, no rebound. No rigidity noted . No masses appreciated. EXTREMITIES: Pedal pulses are 1-2+, no calf tenderness noted. No clubbing or cyanosis.trace to 1+ pedal edema noted NEUROLOGICAL: Focused neurological exam showed no significant neurologic deficit. Normal speech, no focal weakness appreciated. PSYCH: Normal mood, normal affect. Judgment and insight within normal limits. SKIN: No significant ecchymosis, rash, ulcerations or signs of pruritus noted. MUSCULOSKELETAL EXAM: No significant joint swelling noted. Results Laboratory Results: 10/14/16 03:34 10/14/16 03:34 10/14/16 10/14/16 10/14/16 03:34 03:34 03:34 WBC 9.9 RBC 3.95 Hgb 12.5 D Hct 36.7 MCV 93 MCH 31.7 MCHC 34.2 RDW 13.3 Plt Count 217 Seg Neutrophils % 72.7 Lymphocytes % 13.8 Monocytes % 11.0 Eosinophils % 1.9 Basophils % 0.6 Absolute Neutrophils 7.2 Absolute Lymphocytes 1.4 Absolute Monocytes 1.1 Absolute Eosinophils 0.2 Absolute Basophils 0.1 Sodium 141.5 Potassium 4.1 D Chloride 107 Carbon Dioxide 26 Anion Gap 9 BUN 18 Creatinine 0.65 Est GFR ( Amer) > 60 Est GFR (Non-Af Amer) > 60 Glucose 110 Calcium 8.6 Total Bilirubin 0.6 AST 16 ALT 31 Alkaline Phosphatase 176 H Total Protein 5.2 L Albumin 2.9 L TSH 3.25 10/13/16 10/13/16 10/14/16 20:15 20:15 02:06 Creatine Kinase 30 27 L CK-MB (CK-2) 1.60 Troponin I 0.129 10/14/16 10/14/16 10/14/16 02:06 07:52 07:52 Creatine Kinase 31 CK-MB (CK-2) 1.35 1.55 Troponin I 0.084 0.067 Impressions: Venous Doppler Study 10/13/16 00:00 IMPRESSION: Hypoechoic clot in 1 of the paired right gastrocnemius veins in the calf. Remainder of the bilateral lower extremity venous Doppler study is otherwise unremarkable Chest X-Ray 10/13/16 09:18 IMPRESSION: Small left pleural effusion is identified and I cannot exclude some associated atelectasis or infiltrate in the left lung base. Right lung is clear and well expanded. There is evidence for obstructive lung disease. Chest/Abdomen CTA 10/13/16 11:08 IMPRESSION: 1. Bilateral pulmonary emboli are present. The clot burden is moderate. There is no saddle embolus. 2. Pulmonary emphysema. 3. There are marked chronic changes in the left lower lobe with possible superimposed pneumonia. Significant atelectasis is present in the left lower lobe. There is a small left pleural effusion. Consider follow-up CT after treatment to be certain that there is no mass. 3. There is mild right hilar adenopathy. Assessment & Plan - Diagnosis (1) Acute hypoxemic respiratory failure Is this a current diagnosis for this admission?: Yes (2) Bilateral pulmonary embolism Is this a current diagnosis for this admission?: Yes (3) Elevated troponin Is this a current diagnosis for this admission?: Yes (4) Tachycardia Is this a current diagnosis for this admission?: Yes - Notes Notes: Patient is showing slow gradual improvement. Patient is certainly less dyspneic from yesterday. Patient using incentive spirometry. Patient on heparin drip. Consider switch to newer anticoagulants. Tachycardia is improving. At this point continue current management plans. - Time Time with patient: 15-25 minutes - CODE STATUS was discussed, patient remains full code. Surrogate decision-maker unchanged. Multiple medical problems were addressed.More than 50% of the time spent coordinating care, discussing management plans with involved caregivers. Management plans discussed with involved personnels. Medical decision making was of moderate to high complexity , patient's has multiple severe comorbidities.
[2016-10-14] MEDS: CYANOCOBALAMIN (VITAMIN B-12) 1,000 MCG TABLET PO SCH (09:37)
[2016-10-14] MEDS: ALPRAZOLAM 0.25 MG TABLET PO PRN (09:37)
[2016-10-14] MEDS: DOCUSATE SODIUM 100 MG CAPSULE PO SCH ×2 (09:38→17:14)
[2016-10-14 10:18] LABS: CHOLESTEROL 158.74 mg/dL (0-200); Direct HDL 47 mg/dL (>40); TRIGLYCERIDES 178 mg/dL (<150)
[2016-10-14 10:29] LABS: DIRECT LDL 93 mg/dL (<100)
[2016-10-14 10:33] LABS: VLDL CHOLESTEROL 35.6 mg/dL (10-31)
[2016-10-14] MEDS ORDERED: HEPARIN SODIUM,PORCINE/D5W 25,000 UNIT/250 ML RTUINJ IV PRN (15:29)
--- NOTE | 2016-10-14 15:36 | PDOC PROGRESS REPORT ---
Subjective Progress Note for:: 10/14/16 Subjective:: Patient seen earlier today morning rounds. Patient reports she's feeling improved. She reports resolution of her constipation. Patient denies chest pain, abdominal pain, nausea, vomiting, fevers, chills, diarrhea, constipation, headache, new onset weakness. Physical Exam Vital Signs: Temp Pulse Resp BP Pulse Ox 98.3 F 72 24 H 101/67 95 10/14/16 12:00 10/14/16 12:00 10/14/16 12:00 10/14/16 12:00 10/14/16 12:00 Intake & Output 10/13/16 10/14/16 10/15/16 06:59 06:59 06:59 Intake Total 2040 Output Total 750 Balance 1290 Weight 64.1 kg Exam: General: Awake alert and oriented x3, no acute respiratory distress HEENT: AT/NC, PERRL, EOMI, oropharynx is moist, pink, no scleral icterus, no conjunctival injection Neck: No JVD, trachea midline Chest: Clear to auscultation bilaterally, no wheezes rhonchi or rales CV: Regular rate and rhythm, normal S1 and S2, no murmur, rub, or gallop Abdomen: Soft, nontender to palpation, nondistended, active bowel sounds; no rebound, rigidity, or guarding Extremities: No cyanosis, clubbing or edema Neuro: Cranial nerves II through XII are grossly intact without focal deficits; awake alert and oriented x3 Psych: Normal mood and affect Results Laboratory Results: 10/14/16 03:34 10/14/16 03:34 10/14/16 10/14/16 10/14/16 03:34 03:34 03:34 WBC 9.9 RBC 3.95 Hgb 12.5 D Hct 36.7 MCV 93 MCH 31.7 MCHC 34.2 RDW 13.3 Plt Count 217 Seg Neutrophils % 72.7 Lymphocytes % 13.8 Monocytes % 11.0 Eosinophils % 1.9 Basophils % 0.6 Absolute Neutrophils 7.2 Absolute Lymphocytes 1.4 Absolute Monocytes 1.1 Absolute Eosinophils 0.2 Absolute Basophils 0.1 Sodium 141.5 Potassium 4.1 D Chloride 107 Carbon Dioxide 26 Anion Gap 9 BUN 18 Creatinine 0.65 Est GFR ( Amer) > 60 Est GFR (Non-Af Amer) > 60 Glucose 110 Calcium 8.6 Total Bilirubin 0.6 AST 16 ALT 31 Alkaline Phosphatase 176 H Total Protein 5.2 L Albumin 2.9 L Triglycerides Cholesterol LDL Cholesterol Direct VLDL Cholesterol HDL Cholesterol TSH 3.25 10/14/16 03:34 WBC RBC Hgb Hct MCV MCH MCHC RDW Plt Count Seg Neutrophils % Lymphocytes % Monocytes % Eosinophils % Basophils % Absolute Neutrophils Absolute Lymphocytes Absolute Monocytes Absolute Eosinophils Absolute Basophils Sodium Potassium Chloride Carbon Dioxide Anion Gap BUN Creatinine Est GFR ( Amer) Est GFR (Non-Af Amer) Glucose Calcium Total Bilirubin AST ALT Alkaline Phosphatase Total Protein Albumin Triglycerides 178 H Cholesterol 158.74 LDL Cholesterol Direct 93 VLDL Cholesterol 35.6 H HDL Cholesterol 47 TSH 10/13/16 10/13/16 10/14/16 20:15 20:15 02:06 Creatine Kinase 30 27 L CK-MB (CK-2) 1.60 Troponin I 0.129 10/14/16 10/14/16 10/14/16 02:06 07:52 07:52 Creatine Kinase 31 CK-MB (CK-2) 1.35 1.55 Troponin I 0.084 0.067 Impressions: Venous Doppler Study 10/13/16 00:00 IMPRESSION: Hypoechoic clot in 1 of the paired right gastrocnemius veins in the calf. Remainder of the bilateral lower extremity venous Doppler study is otherwise unremarkable Chest X-Ray 10/13/16 09:18 IMPRESSION: Small left pleural effusion is identified and I cannot exclude some associated atelectasis or infiltrate in the left lung base. Right lung is clear and well expanded. There is evidence for obstructive lung disease. Chest/Abdomen CTA 10/13/16 11:08 IMPRESSION: 1. Bilateral pulmonary emboli are present. The clot burden is moderate. There is no saddle embolus. 2. Pulmonary emphysema. 3. There are marked chronic changes in the left lower lobe with possible superimposed pneumonia. Significant atelectasis is present in the left lower lobe. There is a small left pleural effusion. Consider follow-up CT after treatment to be certain that there is no mass. 3. There is mild right hilar adenopathy. Assessment & Plan - Diagnosis (1) Bilateral pulmonary embolism Is this a current diagnosis for this admission?: YesPlan: Downgrade patient to IMCU. Inability patient to assess for need for home oxygen. Patient with significant pulmonary hypertension, some of which appears to be chronic. Initiate Xarelto. Patient has been advised of the increased risk of bleeding, spontaneous bleeding, and lack of antidote. Hematology present at bedside for conversation and also answers questions to patient's satisfaction. Patient with lower extremity DVT. Initiate tumor markers and hypercoagulable panel. (2) Elevated troponin Is this a current diagnosis for this admission?: YesPlan: Likely secondary to right ventricular heart strain. Appreciate cardiology input. Serial cardiac enzymes are trending down. Patient have outpatient stress test for this. (3) Acute hypoxemic respiratory failure Is this a current diagnosis for this admission?: YesPlan: Continue oxygen to maintain oxygen saturation greater than 95%. (4) Leukocytosis Qualifiers: Leukocytosis type: unspecified Qualified Code(s): D72.829 - Elevated white blood cell count, unspecified Is this a current diagnosis for this admission?: YesPlan: Resolved. Likely secondary to stress (5) Dehydration, mild Is this a current diagnosis for this admission?: YesPlan: Resolved. Stop IV fluids (6) SVT (supraventricular tachycardia) Is this a current diagnosis for this admission?: Yes (7) Moderate to severe pulmonary hypertension Is this a current diagnosis for this admission?: Yes (8) Chronic diastolic heart failure Is this a current diagnosis for this admission?: NoPlan: Patient has grade 2 diastolic dysfunction on echo. Patient currently compensated. Current shortness of breath is secondary to cor pulmonale. - Time Time Spent with patient: 35 or more minutes Medications reviewed and adjusted accordingly: Yes Anticipated discharge: Home with Homehealth Within: within 24 hours - Inpatient Certification Based on my medical assessment, after consideration of the patient's comorbidities, presenting symptoms, or acuity I expect that the services needed warrant INPATIENT care.: Yes I certify that my determination is in accordance with my understanding of Medicare's requirements for reasonable and necessary INPATIENT services [42 CFR 412.3e].: Yes Medical Necessity: Need For Continuous Telemetry Monitoring Post Hospital Care: D/C [place] Documentation
[2016-10-14] MEDS: RIVAROXABAN 15 MG TABLET PO SCH (16:46)
--- NOTE | 2016-10-14 19:39 | PDOC CONSULTATION ---
Consultation Consult Date: 10/14/16 Consult reason:: PE History of Present Illness Admission Date/PCP: 10/13/16 14:05 PAUL CLINE MD History of Present Illness: GREYSON MCADAMS is a 71 year old female with a history of hyperlipidemia who presents to the emergency department with approximately one week of progressive shortness of breath and was diagnosed with bilateral PE's with a moderate burden. Patient reports that she's been unable to get her breath and she's been able to ambulate without becoming short of breath for about one month. She reports episodes of tachycardia as well. She denies any fevers or chills but for the same amount of time has had a dry cough for about 7 days. She reports normally she is quite active. Yesterday she reports that she just couldn't go any further. Upon arrival she had mildly elevated troponins and underwent a CTA that is positive for bilateral PEs with moderate clot burden. She was placed on Heparin and placed in the ICU. Her mother was on chronic anticoagulation but no other family history or personal risk factors other than prior tobacco abuse. They did not some haziness on her CT that may require further workup. Past Medical History Cardiac Medical History: Reports: Hyperlipidema Denies: Myocardial Infarction Pulmonary Medical History: Reports: None, Asthma Endocrine Medical History: Denies: Diabetes Mellitus Type 2 Past Surgical History Past Surgical History: Reports: None Denies: Cardiac Catheterization, Coronary Stent Social History Smoking Status: Former Smoker - Quit 16 years ago Cigarettes Packs Per Day: 2 Number of Years Smokin Frequency of Alcohol Use: Occasional Hx Recreational Drug Use: No Hx Prescription Drug Abuse: No - Advance Directive Resuscitation Status: Full Code Family History Family History: Reviewed & Not Pertinent, Other - Younger brother: [place] (2016) Father: CHF Parental Family History Reviewed: Yes Children Family History Reviewed: Yes Sibling(s) Family History Reviewed.: Yes Medication/Allergy Home Medications: Albuterol Sulfate [Proair HFA Inhalation Aerosol 8.5 gm MDI] 2 puff IH Q4HP PRN 10/13/16 Aspirin [Aspirin EC] 81 mg PO DAILY 10/13/16 Cyanocobalamin (Vitamin B-12) [B-12] 1,000 mcg PO DAILY 10/13/16 Fluticasone Propionate [Flonase Nasal [place] 50 Mcg/[place] 16 gm] 2 spray NASL DAILY 10/13/16 Rosuvastatin Calcium [Crestor 10 mg Tablet] 10 mg PO DAILY 10/13/16 Allergies/Adverse Reactions: diclofenac Allergy (Verified 10/13/16 11:28) doxycycline Allergy (Verified 10/13/16 11:28) Review of Systems Constitutional: PRESENT: other - Some weight loss recently Cardiovascular: PRESENT: dyspnea on exertion, palpitations Respiratory: PRESENT: dyspnea Physical Exam Vital Signs: Temp Pulse Resp BP Pulse Ox 98.3 F 75 23 H 127/64 H 100 10/14/16 16:00 10/14/16 16:00 10/14/16 18:00 10/14/16 16:34 10/14/16 18:00 Intake & Output 10/13/16 10/14/16 10/15/16 06:59 06:59 06:59 Intake Total 2040 974 Output Total 750 Balance 1290 974 Weight 64.1 kg Head exam: PRESENT: atraumatic, normocephalic Eye exam: PRESENT: EOMI Respiratory exam: PRESENT: clear to auscultation saad Cardiovascular exam: PRESENT: RRR Pulses: PRESENT: +2 pedal pulses bilateral GI/Abdominal exam: PRESENT: normal bowel sounds Rectal exam: PRESENT: deferred Neurological exam: PRESENT: alert, awake, oriented to person, oriented to place , oriented to time, oriented to situation, CN II-XII grossly intact Psychiatric exam: PRESENT: appropriate affect Results Laboratory Results: 10/14/16 03:34 10/14/16 03:34 10/14/16 10/14/16 10/14/16 03:34 03:34 03:34 WBC 9.9 RBC 3.95 Hgb 12.5 D Hct 36.7 MCV 93 MCH 31.7 MCHC 34.2 RDW 13.3 Plt Count 217 Seg Neutrophils % 72.7 Lymphocytes % 13.8 Monocytes % 11.0 Eosinophils % 1.9 Basophils % 0.6 Absolute Neutrophils 7.2 Absolute Lymphocytes 1.4 Absolute Monocytes 1.1 Absolute Eosinophils 0.2 Absolute Basophils 0.1 Sodium 141.5 Potassium 4.1 D Chloride 107 Carbon Dioxide 26 Anion Gap 9 BUN 18 Creatinine 0.65 Est GFR ( Amer) > 60 Est GFR (Non-Af Amer) > 60 Glucose 110 Calcium 8.6 Total Bilirubin 0.6 AST 16 ALT 31 Alkaline Phosphatase 176 H Total Protein 5.2 L Albumin 2.9 L Triglycerides Cholesterol LDL Cholesterol Direct VLDL Cholesterol HDL Cholesterol TSH 3.25 10/14/16 03:34 WBC RBC Hgb Hct MCV MCH MCHC RDW Plt Count Seg Neutrophils % Lymphocytes % Monocytes % Eosinophils % Basophils % Absolute Neutrophils Absolute Lymphocytes Absolute Monocytes Absolute Eosinophils Absolute Basophils Sodium Potassium Chloride Carbon Dioxide Anion Gap BUN Creatinine Est GFR ( Amer) Est GFR (Non-Af Amer) Glucose Calcium Total Bilirubin AST ALT Alkaline Phosphatase Total Protein Albumin Triglycerides 178 H Cholesterol 158.74 LDL Cholesterol Direct 93 VLDL Cholesterol 35.6 H HDL Cholesterol 47 TSH 10/13/16 10/13/16 10/14/16 20:15 20:15 02:06 Creatine Kinase 30 27 L CK-MB (CK-2) 1.60 Troponin I 0.129 10/14/16 10/14/16 10/14/16 02:06 07:52 07:52 Creatine Kinase 31 CK-MB (CK-2) 1.35 1.55 Troponin I 0.084 0.067 Impressions: Venous Doppler Study 10/13/16 00:00 IMPRESSION: Hypoechoic clot in 1 of the paired right gastrocnemius veins in the calf. Remainder of the bilateral lower extremity venous Doppler study is otherwise unremarkable Chest X-Ray 10/13/16 09:18 IMPRESSION: Small left pleural effusion is identified and I cannot exclude some associated atelectasis or infiltrate in the left lung base. Right lung is clear and well expanded. There is evidence for obstructive lung disease. Chest/Abdomen CTA 10/13/16 11:08 IMPRESSION: 1. Bilateral pulmonary emboli are present. The clot burden is moderate. There is no saddle embolus. 2. Pulmonary emphysema. 3. There are marked chronic changes in the left lower lobe with possible superimposed pneumonia. Significant atelectasis is present in the left lower lobe. There is a small left pleural effusion. Consider follow-up CT after treatment to be certain that there is no mass. 3. There is mild right hilar adenopathy. Assessment & Plan - Diagnosis (1) Bilateral pulmonary embolism Is this a current diagnosis for this admission?: YesPlan: Agree with changing to Xarelto if tolerated and proceed with hypercoaguable work up but she may require a malignant work up as well. (2) Moderate to severe pulmonary hypertension Is this a current diagnosis for this admission?: YesPlan: Possibly secondary to underlying lung disease and/or PE's. - Time Time Spent: 50 to 70 Minutes Critical Time spent with patient: 25-34 minutes
[2016-10-14] MEDS: ATORVASTATIN CALCIUM 10 MG TABLET PO SCH (22:57)
[2016-10-15] MEDS: LANSOPRAZOLE 15 MG TAB.RAP.DR PO SCH (05:39)
[2016-10-15 06:48] LABS: ABSOLUTE EOSINOPHILS # (AUTO) 0.2 10^3/uL (0.0-0.6); ABSOLUTE MONOCYTES (AUTO) 0.8 10^3/uL (0.1-1.4); ABSOLUTE NEUT (AUTO) 6.6 10^3/uL (1.7-8.2); BASOPHILS % (AUTO) 0.5 % (0-2); EOSINOPHILS % (AUTO) 2.6 % (0-6); HEMATOCRIT 34.5 % (36.0-47.0); HGB HCT DIFFERENCE 1.5; LYMPHOCYTES % (AUTO) 11.4 % (13-45); MEAN CORPUSCULAR HEMOGLOBIN 32.1 pg (27.0-33.4); MEAN CORPUSCULAR HGB CONC 34.7 g/dL (32.0-36.0); MEAN CORPUSCULAR VOLUME 93 fl (80-97); MONOCYTES % (AUTO) 9.4 % (3-13); RED BLOOD COUNT 3.73 10^6/uL (3.72-5.28); RED CELL DISTRIBUTION WIDTH 12.9 % (11.5-14.0); SEGMENTED NEUTROPHILS % (AUTO) 76.1 % (42-78); WHITE BLOOD COUNT 8.7 10^3/uL (4.0-10.5)
[2016-10-15] MEDS: CYANOCOBALAMIN (VITAMIN B-12) 1,000 MCG TABLET PO SCH (10:10)
[2016-10-15] MEDS: DOCUSATE SODIUM 100 MG CAPSULE PO SCH (10:10)
[2016-10-15] MEDS: RIVAROXABAN 15 MG TABLET PO SCH (10:10)
--- NOTE | 2016-10-15 12:25 | PDOC PROGRESS REPORT ---
Subjective Progress Note for:: 10/15/16 Subjective:: Patient seems to be doing better with gradual improvement. Patient still short of breath but significantly improved. Pt is denying any chest arm or neck discomfort. Patient denying any PND, orthopnea. Patient denied any sustained palpitations, dizziness, syncope, near syncope. Patient denying any fever chills. Patient denying any other significant discomfort. Patient claims to having episode of wheezing for which she needed bronchodilator therapy early this morning. Patient is maintaining sinus rhythm. Intermittent sinus tachycardia noted. Review of systems: Rest review of systems negative. Medications: Medications have been reviewed. Physical Exam Vital Signs: Temp Pulse Resp BP Pulse Ox 97.6 F 72 18 127/64 H 96 10/15/16 11:44 10/15/16 11:44 10/15/16 11:44 10/15/16 11:44 10/15/16 11:44 Intake & Output 10/14/16 10/15/16 10/16/16 06:59 06:59 06:59 Intake Total 2040 1869 Output Total 750 400 Balance 1290 1469 Weight 64.1 kg 63.2 kg Exam: GENERAL: well-nourished and in no acute distress. Alert and oriented x3 HEAD: Atraumatic, normocephalic. EYES: Pupils equal round and reactive to light, extraocular movements intact, sclera anicteric, conjunctiva are normal. ENT: TMs normal, nares patent, oropharynx clear without exudates. Moist mucous membranes. No oral ulcerations or bleeding gums noted NECK: supple without lymphadenopathy. Trachea is central. No cervical or axillary lymphadenopathy noted. Carotids are 2+, JVD WNL LUNGS: Respiration seems nonlabored, no significant accessory muscle action noted. Mild bilateral wheezes rales or rhonchi noted. No significant dullness noted on percussion. CHEST: Palpation of the chest wall shows no significant chest wall tenderness. No other significant abnormalities noted. 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 ABDOMEN: Soft, no significant tenderness appreciated, normoactive bowel sounds. No guarding, no rebound. No rigidity noted . No masses appreciated. EXTREMITIES: Pedal pulses are 1-2+, no calf tenderness noted. No clubbing or cyanosis.trace to 1+ pedal edema noted NEUROLOGICAL: Focused neurological exam showed no significant neurologic deficit. Normal speech, no focal weakness appreciated. PSYCH: Normal mood, normal affect. Judgment and insight within normal limits. SKIN: No significant ecchymosis, rash, ulcerations or signs of pruritus noted. MUSCULOSKELETAL EXAM: No significant joint swelling noted. Results Laboratory Results: 10/15/16 06:07 10/14/16 03:34 10/15/16 06:07 WBC 8.7 RBC 3.73 Hgb 12.0 Hct 34.5 L MCV 93 MCH 32.1 MCHC 34.7 RDW 12.9 Plt Count 203 Seg Neutrophils % 76.1 Lymphocytes % 11.4 L Monocytes % 9.4 Eosinophils % 2.6 Basophils % 0.5 Absolute Neutrophils 6.6 Absolute Lymphocytes 1.0 Absolute Monocytes 0.8 Absolute Eosinophils 0.2 Absolute Basophils 0.0 10/15/16 04:15 Sputum Gram Stain - Final 10/15/16 04:15 Sputum Sputum Culture - Final 10/13/16 10/13/16 10/14/16 20:15 20:15 02:06 Creatine Kinase 30 27 L CK-MB (CK-2) 1.60 Troponin I 0.129 10/14/16 10/14/16 10/14/16 02:06 07:52 07:52 Creatine Kinase 31 CK-MB (CK-2) 1.35 1.55 Troponin I 0.084 0.067 Impressions: Venous Doppler Study 10/13/16 00:00 IMPRESSION: Hypoechoic clot in 1 of the paired right gastrocnemius veins in the calf. Remainder of the bilateral lower extremity venous Doppler study is otherwise unremarkable Chest X-Ray 10/13/16 09:18 IMPRESSION: Small left pleural effusion is identified and I cannot exclude some associated atelectasis or infiltrate in the left lung base. Right lung is clear and well expanded. There is evidence for obstructive lung disease. Chest/Abdomen CTA 10/13/16 11:08 IMPRESSION: 1. Bilateral pulmonary emboli are present. The clot burden is moderate. There is no saddle embolus. 2. Pulmonary emphysema. 3. There are marked chronic changes in the left lower lobe with possible superimposed pneumonia. Significant atelectasis is present in the left lower lobe. There is a small left pleural effusion. Consider follow-up CT after treatment to be certain that there is no mass. 3. There is mild right hilar adenopathy. Assessment & Plan - Diagnosis (1) Acute hypoxemic respiratory failure Is this a current diagnosis for this admission?: Yes (2) Bilateral pulmonary embolism Is this a current diagnosis for this admission?: Yes (3) Elevated troponin Is this a current diagnosis for this admission?: Yes (4) Tachycardia Is this a current diagnosis for this admission?: Yes - Notes Notes: Acute hypoxic respiratory failure: Precipitated by pulmonary embolism on top of significant COPD. At this point patient needing oxygen supplementation. Bilateral pulmonary embolism: Patient currently on oral anticoagulant, Xarelto. Patient being seen by counterintelligence analyst oncologist for workup for any hypercoagulable disorder. Troponin I: This is elevated. Most likely related to pulmonary embolism. Will discuss ischemia workup at a later date. Tachycardia: Related to COPD and pulmonary embolism. This is gradually improving. Right ventricular enlargement and dysfunction: Related to pulmonary hypertension secondary to COPD and pulmonary embolism. Maintain adequate oxygenation and further thromboembolic episodes. - Time Time with patient: 15-25 minutes - CODE STATUS was discussed, patient remains full code. Surrogate decision-maker unchanged. Multiple medical problems were addressed.More than 50% of the time spent coordinating care, discussing management plans with involved caregivers. Management plans discussed with involved personnels. Medical decision making was of moderate to high complexity , patient's has multiple severe comorbidities.
[2016-10-15 13:13] VITALS: BP 130/68
[2016-10-15 15:38] LABS: ALBUMIN 3 2.7 g/dL (2.9-4.4); ALPHA-1-GLOBULIN 0.3 g/dL (0.0-0.4); BETA GLOBULIN 0.8 g/dL (0.7-1.3); GLOBULIN TTL 2.4 g/dL (2.2-3.9); IMMUNOGLOBULIN A 190 mg/dL (87-352); IMMUNOGLOBULIN G 337 mg/dL (700-1600); IMMUNOGLOBULIN M 82 mg/dL (26-217); MONOCLONAL-SPIKE Not Observed g/dL (Not Observed); PROTEIN TOTAL SERUM 5.1 g/dL (6.0-8.5)
--- NOTE | 2016-10-15 18:59 | PDOC PROGRESS REPORT ---
Subjective Progress Note for:: 10/15/16 Subjective:: Desaturates to 86% while on O2 and ambulating. Physical Exam Vital Signs: Temp Pulse Resp BP Pulse Ox 97.3 F 86 18 127/64 H 94 10/15/16 11:44 10/15/16 11:44 10/15/16 11:44 10/15/16 11:44 10/15/16 11:44 Intake & Output 10/14/16 10/15/16 10/16/16 06:59 06:59 06:59 Intake Total 2040 1869 598 Output Total 750 400 Balance 1290 1469 598 Weight 64.1 kg 63.2 kg Eye exam: PRESENT: PERRLA Ear exam: PRESENT: normal external ear exam Respiratory exam: PRESENT: unlabored Results Laboratory Results: 10/15/16 06:07 10/14/16 03:34 10/15/16 06:07 WBC 8.7 RBC 3.73 Hgb 12.0 Hct 34.5 L MCV 93 MCH 32.1 MCHC 34.7 RDW 12.9 Plt Count 203 Seg Neutrophils % 76.1 Lymphocytes % 11.4 L Monocytes % 9.4 Eosinophils % 2.6 Basophils % 0.5 Absolute Neutrophils 6.6 Absolute Lymphocytes 1.0 Absolute Monocytes 0.8 Absolute Eosinophils 0.2 Absolute Basophils 0.0 10/15/16 04:15 Sputum Gram Stain - Final 10/15/16 04:15 Sputum Sputum Culture - Final 10/13/16 10/13/16 10/14/16 20:15 20:15 02:06 Creatine Kinase 30 27 L CK-MB (CK-2) 1.60 Troponin I 0.129 10/14/16 10/14/16 10/14/16 02:06 07:52 07:52 Creatine Kinase 31 CK-MB (CK-2) 1.35 1.55 Troponin I 0.084 0.067 Impressions: Venous Doppler Study 10/13/16 00:00 IMPRESSION: Hypoechoic clot in 1 of the paired right gastrocnemius veins in the calf. Remainder of the bilateral lower extremity venous Doppler study is otherwise unremarkable Chest X-Ray 10/13/16 09:18 IMPRESSION: Small left pleural effusion is identified and I cannot exclude some associated atelectasis or infiltrate in the left lung base. Right lung is clear and well expanded. There is evidence for obstructive lung disease. Chest/Abdomen CTA 10/13/16 11:08 IMPRESSION: 1. Bilateral pulmonary emboli are present. The clot burden is moderate. There is no saddle embolus. 2. Pulmonary emphysema. 3. There are marked chronic changes in the left lower lobe with possible superimposed pneumonia. Significant atelectasis is present in the left lower lobe. There is a small left pleural effusion. Consider follow-up CT after treatment to be certain that there is no mass. 3. There is mild right hilar adenopathy. Assessment & Plan - Diagnosis (1) Bilateral pulmonary embolism Is this a current diagnosis for this admission?: YesPlan: Continue Xarelto and will follow up as an outpatient (2) Moderate to severe pulmonary hypertension Is this a current diagnosis for this admission?: Yes
[2016-10-16 07:34] LABS: CA 27.29 94.3 U/mL (0.0-38.6)
[2016-10-16 10:59] LABS: FACTOR II ACTIVITY 131 % (50-154)
[2016-10-16 18:37] LABS: M-SPIKE % UR Not Observed % (Not Observed)
--- NOTE | 2016-10-16 20:02 | PDOC DISCHARGE SUMMARY ---
General - Admit/Disc Date/PCP Admission Date/Primary Care Provider: 10/13/16 14:05 PAUL CLINE MD Discharge Date: 10/15/16 - Discharge Diagnosis (1) Bilateral pulmonary embolism Is this a current diagnosis for this admission?: Yes (2) Elevated troponin Is this a current diagnosis for this admission?: Yes (3) Acute hypoxemic respiratory failure Is this a current diagnosis for this admission?: Yes (4) Leukocytosis Is this a current diagnosis for this admission?: Yes (5) Dehydration, mild Is this a current diagnosis for this admission?: Yes (6) SVT (supraventricular tachycardia) Is this a current diagnosis for this admission?: Yes (7) Moderate to severe pulmonary hypertension Is this a current diagnosis for this admission?: Yes (8) Chronic diastolic heart failure Is this a current diagnosis for this admission?: No - Additional Information Resuscitation Status: Full Code Discharge Diet: Regular Discharge Activity: Activity As Tolerated Home Medications: Albuterol Sulfate [Proair HFA Inhalation Aerosol 8.5 gm MDI] 2 puff IH Q4HP PRN 10/13/16 Cyanocobalamin (Vitamin B-12) [B-12] 1,000 mcg PO DAILY 10/13/16 Fluticasone Propionate [Flonase Nasal [place] 50 Mcg/[place] 16 gm] 2 spray NASL DAILY 10/13/16 Rosuvastatin Calcium [Crestor 10 mg Tablet] 10 mg PO DAILY 10/13/16 Oxycodone HCl/Acetaminophen [Percocet 5-325 mg Tablet] 1 tab PO Q4HP PRN #10 tablet 10/15/16 Rivaroxaban [Xarelto 15 mg Tablet] 15 mg PO BIDBS #42 tablet 10/15/16 History of Present Illness History of Present Illness: GREYSON MCADAMS is a 71 year old female with a history of hyperlipidemia who presents to the emergency department with approximately one week of progressive shortness of breath. Patient reports that she's been unable to get her breath and she's been able to ambulate without becoming short of breath. She reports episodes of her heart racing. She denies any fevers or chills but for the same amount of time has had a dry cough for about 7 days. She reports normally she is quite active. Apparently one month ago she had some difficulty with her allergies which she found unusual as she has lived here for the last 30 years. She did have resolution of her shortness of breath at that time with Flonase. Patient also reports having been evaluated in the past by Dr. Ford of cardiology for SVT. Here in the emergency department, patient is found to have an elevated troponin very mildly and a CTA that is positive for bilateral PEs with moderate clot burden. She is referred to hospital service for evaluation and treatment. Hospital Course Hospital Course: Initially, patient's Lasix in the ICU and start heparin drip. Cardiology and hematology were consulted. Patient was transition to Xarelto. Hypoechoic panel and tumor markers were drawn. Patient was found on echo to have moderate pulmonary hypertension some of which appeared to be chronic. This was discussed with patient. She is advised strongly to follow-up with hematology oncology for the result of her tumor marker as well as her hypercoagulable panel. Patient was qualified for home oxygen and discharged in stable condition. Patient was advised of the increased risk of bleeding of Xarelto. Physical Exam Vital Signs: Temp Pulse Resp BP Pulse Ox 97.3 F 86 18 127/64 H 94 10/15/16 11:44 10/15/16 11:44 10/15/16 11:44 10/15/16 11:44 10/15/16 11:44 Intake & Output 10/15/16 10/16/16 10/17/16 06:59 06:59 06:59 Intake Total 1869 598 Output Total 400 Balance 1469 598 Weight 63.2 kg Exam: General: Awake alert and oriented x3, no acute respiratory distress HEENT: AT/NC, PERRL, EOMI, oropharynx is moist, pink, no scleral icterus, no conjunctival injection Neck: No JVD, trachea midline Chest: Clear to auscultation bilaterally, no wheezes rhonchi or rales CV: Regular rate and rhythm, normal S1 and S2, no murmur, rub, or gallop Abdomen: Soft, nontender to palpation, nondistended, active bowel sounds; no rebound, rigidity, or guarding Extremities: No cyanosis, clubbing or edema Neuro: Cranial nerves II through XII are grossly intact without focal deficits; awake alert and oriented x3 Psych: Normal mood and affect Results Laboratory Results: 10/15/16 06:07 10/14/16 03:34 10/14/16 12:15 Total Protein 5.1 L Albumin 2.7 L 10/13/16 10/13/16 10/14/16 20:15 20:15 02:06 Creatine Kinase 30 27 L CK-MB (CK-2) 1.60 Troponin I 0.129 10/14/16 10/14/16 10/14/16 02:06 07:52 07:52 Creatine Kinase 31 CK-MB (CK-2) 1.35 1.55 Troponin I 0.084 0.067 Impressions: Venous Doppler Study 10/13/16 00:00 IMPRESSION: Hypoechoic clot in 1 of the paired right gastrocnemius veins in the calf. Remainder of the bilateral lower extremity venous Doppler study is otherwise unremarkable Chest X-Ray 10/13/16 09:18 IMPRESSION: Small left pleural effusion is identified and I cannot exclude some associated atelectasis or infiltrate in the left lung base. Right lung is clear and well expanded. There is evidence for obstructive lung disease. Chest/Abdomen CTA 10/13/16 11:08 IMPRESSION: 1. Bilateral pulmonary emboli are present. The clot burden is moderate. There is no saddle embolus. 2. Pulmonary emphysema. 3. There are marked chronic changes in the left lower lobe with possible superimposed pneumonia. Significant atelectasis is present in the left lower lobe. There is a small left pleural effusion. Consider follow-up CT after treatment to be certain that there is no mass. 3. There is mild right hilar adenopathy. Qualifiers PATEINT BEING DISCHARGED WITH ANY OF THE FOLLOWING DIAGNOSIS?: VTE (PE or DVT) VTE patient discharged on overlapping Therapy?: No Reason(s) for not prescribing Overlap Therapy:: Not indicated - On Xarelto Plan Time Spent: Less than 30 Minutes
== END 2016-10-15 15:04 | disposition home or self-care (01) | DRG 175 ==
LOC: ER 09:15 → UNDOADMIN 13:56 → EH 13:56 → ICU 16:18 → EH 16:18 → 3W 10-15 00:03
PROVIDERS: ADMIT Family Medicine; ATTEND Family Medicine
PROC: 5A09357 Assistance with Respiratory Ventilation, Less than 24 Consecutive Hours, Continuous Positive Airway Pressure (ICD-10-PCS; principal; 2016-10-14)
PROC: 3E0F73Z Introduction of Anti-inflammatory into Respiratory Tract, Via Natural or Artificial Opening (ICD-10-PCS; 2016-10-14)
DX: I26.99 Other pulmonary embolism without acute cor pulmonale (principal); J96.01 Acute respiratory failure with hypoxia; I47.1 Supraventricular tachycardia; I50.32 Chronic diastolic (congestive) heart failure; E86.0 Dehydration; I27.2 Other secondary pulmonary hypertension; R74.8 Abnormal levels of other serum enzymes; Z82.49 Family history of ischemic heart disease and other diseases of the circulatory system; Z95.5 Presence of coronary angioplasty implant and graft; Z87.891 Personal history of nicotine dependence; Z88.8 Allergy status to other drugs, medicaments and biological substances
CPT/HCPCS: 36415; 71020; 71275; 80053; 80061; 81001; 81241; 82378; 82550; 82553; 82803; 83605; 83735; 84166; 84443; 84484; 85025; 85210; 85300; 85597; 85598; 85610; 85613; 85730; 85732; 86146; 86147; 86148; 86300; 86301; 86304; 86320; 86849; 87040; 87086; 87205; 93005; 93010; 93306; 93970; 94640; 94799; 99291; J1644; J3490; J7030; J7620

== ENCOUNTER 2016-10-30 05:10 | Emergency (ER) | payer MEDICARE, OTHER ==
--- NOTE | 2016-10-30 07:00 | ER Document Report ---
ED General - General Mode of Arrival: Ambulatory Information source: Patient TRAVEL OUTSIDE OF THE U.S. IN LAST 30 DAYS: No - HPI Patient complains to provider of: Left Rib Pain Onset: This morning - 0300 Associated symptoms: Other - see notes above - General Chief Complaint: Rib Pain Stated Complaint: RIB PAIN Time Seen by Provider: 10/30/16 06:45 Notes: 71 year old female with recent bilateral pulmonary embolism (10/13/2016) presents to the ED complaining of left rib pain that started earlier this morning. Patient states that she stretched in bed to plug in her phone when she heard something 'pop' to her left rib. Patient is concerned that she broke her rib and is complaining of difficulty laying down secondary to the pain. Patient denies hitting her rib, but states that she has been coughing excessively recently to the point of almost vomiting. Patient has pain with deep breathing. Patient reports no appetite and decreased energy secondary to the bilateral pulmonary emboli. Patient states that she has not been using her spirometry as often as she should be. Patient has an appointment with Dr. Finley on 2016. Patient's primary care provider is Dr. Samuel in [place], [place]. Patient is currently on double dose of Xarelto and 2.5L oxygen. (RICKIE ADAMSON) - Related Data Allergies/Adverse Reactions: diclofenac Allergy (Verified 10/30/16 07:36) doxycycline Allergy (Verified 10/30/16 07:36) Past Medical History - General Information source: Patient - Social History Smoking Status: Former Smoker Family History: Reviewed & Not Pertinent, Other - Younger brother: [place] (2016) Father: CHF Patient has suicidal ideation: No Patient has homicidal ideation: No - Past Medical History Cardiac Medical History: Reports: Hx Hypercholesterolemia Pulmonary Medical History: Reports: Hx Asthma Past Surgical History: Denies: Hx Cardiac Catheterization, Hx Coronary Stent Review of Systems - Review of Systems Constitutional: See HPI, Weakness EENT: No symptoms reported Cardiovascular: No symptoms reported Respiratory: See HPI, Cough, Hurts to breathe Gastrointestinal: See HPI, Poor appetite Genitourinary: No symptoms reported Female Genitourinary: No symptoms reported Musculoskeletal: See HPI, Other - left rib pain Skin: No symptoms reported Hematologic/Lymphatic: No symptoms reported Neurological/Psychological: No symptoms reported Physical Exam - General General appearance: Alert In distress: None - HEENT Head: Normocephalic, Atraumatic Eyes: Normal Extraocular movements intact: Yes Pupils: PERRL - Respiratory Respiratory status: No respiratory distress Chest status: Tender Breath sounds: Normal Chest palpation: Tender - reproducible left middle rib tenderness to palpation - Cardiovascular Rhythm: Regular Heart sounds: Normal auscultation - Abdominal Inspection: Normal - Back Back: Normal, Nontender - Extremities General upper extremity: Normal inspection, Normal ROM General lower extremity: Normal inspection, Normal ROM - Neurological Neuro grossly intact: Yes Cognition: Normal Orientation: AAOx4 [place] Coma Scale Eye Opening: Spontaneous [place] Coma Scale Verbal: Oriented [place] Coma Scale Motor: Obeys Commands K[place]h Coma Scale Total: 15 Speech: Normal - Psychological Associated symptoms: Normal affect, Normal mood - Skin Skin Temperature: Warm Skin Moisture: Dry Skin Color: Normal - Vital signs Vitals: Temp Pulse Resp BP Pulse Ox 97.2 F 87 20 130/65 H 98 10/30/16 05:19 10/30/16 05:19 10/30/16 05:19 10/30/16 05:19 10/30/16 05:19 - Skin Notes: no singles noted (RICKIE ADAMSON) Discharge - Discharge Clinical Impression: Acute left rib strain Condition: Stable Disposition: HOME, SELF-CARE Additional Instructions: Chest Wall Pain/ rib strain Your chest pain has been diagnosed as coming from the chest wall. This is often caused by straining the muscles or joints in the chest during physical activity, direct trauma, coughing, or vigorous vomiting. Persons with arthritis are especially prone to this type of pain, due to inflammation of the cartilage joints near the breast bone. Occasionally, no cause can be found. Rest from strenuous physical activity. This kind of chest pain is usually made worse by movement of the chest. Depending on the symptoms, we may prescribe medicine for pain, muscle relaxation, and antiinflammatory effects. If the pain is new, and seems to be due to muscle strain, cold packs can help. Otherwise, apply gentle warmth to the painful area for 15 minutes every hour or two. You should contact the doctor immediately if things change. Further evaluation is needed if you develop a fever or cough, if the nature of the pain changes, or if you become short of breath. Referrals: PAUL SAMUEL MD [Primary Care Provider] - Follow up in 3-5 days (Return to the emergency department sooner for increasing worsening or new symptoms) Scribe Attestation: 10/30/16 07:22 I personally performed the services described in the documentation reviewed the documentation recorded by my scribe in my presence and it accurately and completely records my words and actions (EMA WILLIS) Scribe Documentation - Scribe Written by Evan:: Evan Quach, 10/30/2016 0745 acting as scribe for :: Curt
[2016-10-30] MEDS ORDERED: HYDROMORPHONE HCL INJ/PF 2 MG/ML AMPULE IM ONE (07:08)
[2016-10-30 07:36] VITALS: BP 116/71
== END 2016-10-30 07:52 | disposition home or self-care (01) ==
LOC: ER 05:10
DX: S29.011A Strain of muscle and tendon of front wall of thorax, initial encounter (principal); R07.81 Pleurodynia; Z86.711 Personal history of pulmonary embolism; R53.1 Weakness; R05 Cough; X58.XXXA Exposure to other specified factors, initial encounter; E78.00 Pure hypercholesterolemia, unspecified; J45.909 Unspecified asthma, uncomplicated; Z79.02 Long term (current) use of antithrombotics/antiplatelets; Z99.81 Dependence on supplemental oxygen; Z87.891 Personal history of nicotine dependence
CPT/HCPCS: 99283; 96372; 71020; 71100; J1170

== ENCOUNTER 2016-11-15 20:10 | Emergency (ER) | payer MEDICARE, OTHER ==
--- NOTE | 2016-11-15 22:50 | ER Document Report ---
ED Extremity Problem, Lower - General Mode of Arrival: Ambulatory Information source: Patient TRAVEL OUTSIDE OF THE U.S. IN LAST 30 DAYS: No - HPI Patient complains to provider of: Other - 'lump' to the posterior aspect of the right knee Location: Knee - posterior right knee Occurred: This evening Context: Other - see notes above Associated symptoms: Other - see notes above <RICKIE ADAMSON - Last Filed: 11/15/16 22:41> <PEACE CRUZ - Last Filed: 11/16/16 00:27> - General Chief Complaint: Lump behind right knee Stated Complaint: KNOT BEHIND KNEE Time Seen by Provider: 11/15/16 22:26 Notes: 71 year old female with history of oxygen dependent [employer] and bilateral pulmonary emboli (10/13/2016) presents to the ED complaining of a 'lump' to the posterior aspect of the right knee that she noticed today. Patient states that the lump is not tender. Patient is currently on Xarelto secondary to the bilateral pulmonary emboli. Blood work performed during hospitalization for the emboli revealed elevated CEA, CA125, and CA27-29. Patient has followed up with an oncologist and 'hotspots' to the liver, chest, and neck were found. Patient has a biopsy scheduled at [facility] on 11/18/2016. (RICKIE ADAMSON) - Related Data Allergies/Adverse Reactions: diclofenac Allergy (Verified 10/30/16 07:36) doxycycline Allergy (Verified 10/30/16 07:36) Past Medical History - General Information source: Patient - Social History Smoking Status: Current Every Day Smoker Family History: Reviewed & Not Pertinent, Other - Younger brother: [place] (2016) Father: CHF Patient has suicidal ideation: No Patient has homicidal ideation: No - Past Medical History Cardiac Medical History: Reports: Hx Hypercholesterolemia, Hx Pulmonary Embolism - 10/13/2016; bilateral Pulmonary Medical History: Reports: Hx Asthma, Hx COPD - oxygen dependent Endocrine Medical History: Denies: Hx Diabetes Mellitus Type 2 Renal/ Medical History: Denies: Hx Peritoneal Dialysis Past Surgical History: Denies: Hx Cardiac Catheterization, Hx Coronary Stent - Immunizations Hx Diphtheria, Pertussis, Tetanus Vaccination: Yes <RICKIE ADAMSON - Last Filed: 11/15/16 22:41> Review of Systems - Review of Systems Constitutional: No symptoms reported EENT: No symptoms reported Cardiovascular: No symptoms reported Respiratory: No symptoms reported Gastrointestinal: No symptoms reported Genitourinary: No symptoms reported Female Genitourinary: No symptoms reported Musculoskeletal: See HPI, Other - lump to the posterior aspect of the right knee , medially Skin: No symptoms reported Hematologic/Lymphatic: No symptoms reported Neurological/Psychological: No symptoms reported <RICKIE ADAMSON - Last Filed: 11/15/16 22:41> Physical Exam - General General appearance: Alert In distress: None - HEENT Head: Normocephalic, Atraumatic Eyes: Normal Extraocular movements intact: Yes Pupils: PERRL - Respiratory Respiratory status: No respiratory distress Breath sounds: Rhonchi - when coughing, Other - coarse breath sounds throughout - Cardiovascular Rhythm: Regular Heart sounds: Normal auscultation - Abdominal Inspection: Normal Distension: No distension Tenderness: Nontender - Back Back: Normal - Extremities General upper extremity: Normal inspection, Normal ROM General lower extremity: Normal ROM. No: Normal inspection - see knee exam below Knee: Other - There is a 2x4 cm smooth non-tender lipomatous mass medial to the semimembranous tendon of the right distal thigh.. No: Normal - Neurological Neuro grossly intact: Yes - Psychological Associated symptoms: Normal affect, Normal mood - Skin Skin Temperature: Warm Skin Moisture: Dry Skin Color: Normal <RICKIE ADAMSON - Last Filed: 11/15/16 22:41> Course - Diagnostic Test Radiology reviewed: Reports reviewed - Ultrasound shows a soft tissue mass at the right distal medial thigh with some internal vascularity. <PEACE CRUZ - Last Filed: 11/16/16 00:27> - Vital Signs Vital signs: Temp Pulse Resp BP Pulse Ox 98.1 F 99 17 121/71 96 11/15/16 20:58 11/15/16 20:58 11/15/16 20:58 11/15/16 20:58 11/15/16 20:58 Discharge <RICKIE ADAMSON - Last Filed: 11/15/16 22:41> <PEACE CRUZ - Last Filed: 11/16/16 00:27> - Discharge Clinical Impression: Mass of right thigh Condition: Stable Disposition: HOME, SELF-CARE Additional Instructions: The ultrasound showed a well-circumscribed oval shaped soft tissue mass with some internal blood flow. The mass measures 3.2 x 3.9 x 1.1 cm. This mass will need an MRI exam or biopsy to further determine what is causing it. Take the CD of the ultrasound and the radiology report with you to your appointment in [place] on Thursday. Eliezeribe Attestation: 11/16/16 00:26 I personally performed the services described in the documentation, reviewed and edited the documentation which was dictated to the scribe in my presence, and it accurately records my words and actions. (PEACE CRUZ) Scribe Documentation - Scribe Written by Evan:: Evan Quach, 11/15/2016 2255 acting as scribe for :: Jose <RICKIE ADAMSON - Last Filed: 11/15/16 22:41>
--- NOTE | 2016-11-16 00:13 | RADIOLOGY REPORT (SQ) ---
EXAM DESCRIPTION: U/S EXTREMITY NONVASCULAR LTD COMPLETED DATE/TIME: 11/15/2016 11:51 pm REASON FOR STUDY: R dist med thigh mass,Xarelto,metastatic disease COMPARISON: None. TECHNIQUE: Dynamic and static grayscale images acquired of the localized site of clinical concern an d recorded on PACS. Additional selected color Doppler images recorded. SITE OF CONCERN: Right distal medial thigh LIMITATIONS: None. FINDINGS: Scanning at the patient's area of concern at the right distal medial thigh demonstrate a w ell circumscribed oval shape soft tissue mass with internal vascularity on Doppler images measuring 3 .2 x 3.9 x 1.1 cm. IMPRESSION: Soft tissue mass at the right distal medial thigh, malignancy cannot be excluded. Corre lation with tissue biopsy recommended. TECHNICAL DOCUMENTATION: JOB ID: [id number] [id number] 2010 [employer]- All Rights Reserved
[2016-11-16 00:35] VITALS: BP 134/62
== END 2016-11-16 00:37 | disposition home or self-care (01) ==
LOC: ER 20:10
DX: R22.41 Localized swelling, mass and lump, right lower limb (principal); J44.9 Chronic obstructive pulmonary disease, unspecified; Z79.01 Long term (current) use of anticoagulants; F17.200 Nicotine dependence, unspecified, uncomplicated
CPT/HCPCS: 76882; 99282

== ENCOUNTER 2016-12-01 13:02 | Emergency (ER) | payer MEDICARE, OTHER ==
--- NOTE | 2016-12-01 15:11 | ER Document Report ---
ED Respiratory Problem - General Chief Complaint: Breathing Difficulty Stated Complaint: LOWER BACK PAIN Time Seen by Provider: 12/01/16 14:55 Notes: Patient is a 71-year-old, past medical history non-small cell lung cancer ( about to start chemo this week at [facility]), bilateral PEs (on Lovenox, last dose yesterday morning), recurrent pleural effusions, presents with increasing shortness of breath and right posterior mid back pain. She had 1 L drained of her left lung last week after she had similar symptoms on her left side. Today , her symptoms are on the right side. She wears 2.5 L oxygen at home. She spoke to her Interventional Plumbing Instructor (Dr. Velasquez) at [facility] and was told to come to the closest ER. Denies fevers, hemoptysis, cough, leg swelling, nausea, vomiting, rash, chest pain or syncope. TRAVEL OUTSIDE OF THE [place].S. IN LAST 30 DAYS: No - Related Data Allergies/Adverse Reactions: diclofenac Allergy (Verified 12/01/16 13:06) doxycycline Allergy (Verified 12/01/16 13:06) Past Medical History - General Information source: Patient - Social History Smoking Status: Unknown if Ever Smoked Family History: Reviewed & Not Pertinent, Other - Younger brother: JAVY (2016) Father: CHF Patient has suicidal ideation: No Patient has homicidal ideation: No - Past Medical History Cardiac Medical History: Reports: Hx Hypercholesterolemia, Hx Pulmonary Embolism - 10/13/2016; bilateral Denies: Hx Heart Attack Pulmonary Medical History: Reports: Hx Asthma, Hx COPD - oxygen dependent Endocrine Medical History: Denies: Hx Diabetes Mellitus Type 2 Renal/ Medical History: Denies: Hx Peritoneal Dialysis Past Surgical History: Denies: Hx Cardiac Catheterization, Hx Coronary Stent - Immunizations Hx Diphtheria, Pertussis, Tetanus Vaccination: Yes Review of Systems - Review of Systems Notes: REVIEW OF SYSTEMS: CONSTITUTIONAL: -fevers, -chills EENT: -eye pain, -difficulty swallowing, -nasal congestion CARDIOVASCULAR: -chest pain, -syncope. RESPIRATORY: -cough, +SOB GASTROINTESTINAL: -abdominal pain, - nausea, -vomiting, -diarrhea GENITOURINARY: -dysuria, -hematuria MUSCULOSKELETAL: +back pain, -neck pain SKIN: -rash or skin lesions. HEMATOLOGIC: -easy bruising or bleeding. LYMPHATIC: -swollen, enlarged glands. NEUROLOGICAL: -altered mental status or loss of consciousness, -headache, - neurologic symptoms PSYCHIATRIC: -anxiety, -depression. ALL OTHER SYSTEMS REVIEWED AND NEGATIVE. Physical Exam - Vital signs Vitals: Temp Pulse Resp BP Pulse Ox 97.9 F 103 H 20 135/70 H 98 12/01/16 13:06 12/01/16 13:06 12/01/16 13:06 12/01/16 13:06 12/01/16 13:06 - Notes Notes: PHYSICAL EXAMINATION: GENERAL: Well-appearing, well-nourished and in no acute distress. HEAD: Atraumatic, normocephalic. EYES: Pupils equal round and reactive to light, extraocular movements intact, sclera anicteric, conjunctiva are normal. ENT: nares patent, oropharynx clear without exudates. Moist mucous membranes. NECK: Normal range of motion, supple without lymphadenopathy LUNGS: No respiratory distress. Dullness in left lung up to mid-lung. HEART: Tachycardic ABDOMEN: Soft, nontender, normoactive bowel sounds. No guarding, no rebound. No masses appreciated. EXTREMITIES: Normal range of motion, no pitting or edema. No cyanosis. NEUROLOGICAL: Cranial nerves grossly intact. Normal speech, normal gait. Normal sensory and motor exams. PSYCH: Normal mood, normal affect. SKIN: Warm, Dry, normal turgor, no rashes or lesions noted. Course - Re-evaluation Re-evalutation: Patient is in no respiratory distress. He is not hypoxic on her home 2.[address] shows left pleural effusion, which is recurrent after her 1 L drainage last week at [facility]. Her PEs have dissolved. Patient is also aware of her liver mets and this may be causing her right posterior chest pain. Placed call to her Oncologist at [facility] (Dr. Char Hernandez) at 19:45 to discuss further recommendations. Placed call to her Interventional Plumbing Instructor (Dr. Martin Velasquez) at 20:40. 12/01/16 20:[address] Delfina Price ([facility] Plumbing Instructor paleontology teacher) and discussed patient. Agrees that patient is safe for outpatient thoracentesis tomorrow. He will leave a message for her primary fulfillment coordinator to call her tomorrow. Instructed patient to call office if she has not heard from them. Pt and family comfortable with plan. - Vital Signs Vital signs: Temp Pulse Resp BP Pulse Ox 97.9 F 103 H 15 119/65 97 12/01/16 13:06 12/01/16 13:06 12/01/16 19:01 12/01/16 19:01 12/01/16 19:01 - Laboratory Result Diagrams: 12/01/16 17:10 12/01/16 17:10 Laboratory results interpreted by me: 12/01/16 12/01/16 17:10 17:10 RBC 3.38 L Hgb 10.2 L Hct 30.8 L Seg Neutrophils % 82.8 H Lymphocytes % 8.0 L Absolute Neutrophils 8.4 H Creatinine 0.50 L Alkaline Phosphatase 294 H Creatine Kinase < 20 L Total Protein 5.6 L Albumin 3.0 L - Diagnostic Test Radiology reviewed: Image reviewed, Reports reviewed Radiology results interpreted by me: 12/01/16 20:12 IMPRESSION: 1. There are no acute pulmonary emboli. Prior emboli have resolved. 2. There is increasing left pleural effusion and there is significant atelectasis in the left lower lobe. 3. An infiltrate cannot be ruled out in the right middle lobe or the left lower lobe. 4. There is increasing density extending from the right hilum. Consolidation versus mass. 5. There are areas of decreased attenuation in the liver that is somewhat ill- defined but more prominent than on the prior study concerning for metastases. Discharge - Discharge Clinical Impression: Recurrent left pleural effusion Condition: Stable Disposition: HOME, SELF-CARE Additional Instructions: Call Dr. Velasquez tomorrow if you have not heard from him in the morning to schedule your thoracentesis. Bring the copy of your CT scan and labs. Pleural Effusion You have a pleural effusion. A pleural effusion is fluid in the space between your lung and chest wall. This can be caused by pleurisy (inflammation of the lung lining), pneumonia, heart disease, pulmonary embolism (blood clots in the lung), or chest injury. It may also occur with any condition that results in severe fluid retention, such as kidney or liver failure. Occasionally the effusion is due to tumor or other serious conditions. A pleural effusion may not cause any symptoms at all. But often, there is sharp pain with breathing. A large effusion can make you short of breath. If we know what caused a pleural effusion, there's usually no need for further testing. In these cases, we treat the underlying illness. In mysterious cases, a sample of the fluid can show what caused the effusion. This sample is obtained by putting a needle between the ribs. If the effusion is large enough to cause shortness of breath, we can remove it through the needle. Follow-up is important. Be sure to see the doctor for further care. Call or return if you become very short of breath, have increasing pain, or develop a new fever.
--- NOTE | 2016-12-01 16:36 | RADIOLOGY REPORT (SQ) ---
EXAM DESCRIPTION: CHEST PA/LAT COMPLETED DATE/TIME: 12/01/2016 4:26 pm REASON FOR STUDY: SOB COMPARISON: 10/30/2016. EXAM PARAMETERS: NUMBER OF VIEWS: two views TECHNIQUE: Digital Frontal and Lateral radiographic views of the chest acquired. RADIATION DOSE: NA LIMITATIONS: none FINDINGS: LUNGS AND PLEURA: Moderate left pleural effusion which has increased in size. Patchy dens ity in the left base and lingula, partially obscured by pleural fluid. Right lung clear. No pneumot horax. MEDIASTINUM AND HILAR STRUCTURES: No masses or contour abnormalities. HEART AND VASCULAR STRUCTURES: Heart normal size. No evidence for failure. BONES: No acute findings. HARDWARE: None in the chest. OTHER: No other significant finding. IMPRESSION: MODERATE LEFT PLEURAL EFFUSION WHICH HAS INCREASED IN SIZE SINCE THE PRIOR STUDY. PATCH Y DENSITY IN THE LEFT LUNG PARTIALLY OBSCURED BY FLUID WHICH COULD BE DUE TO SCARRING, ATELECTASIS, O R PNEUMONIA. UNDERLYING MASS CANNOT BE EXCLUDED. TECHNICAL DOCUMENTATION: JOB ID: [id number] [employer]- All Rights Reserved
[2016-12-01 17:26] LABS: ABSOLUTE EOSINOPHILS # (AUTO) 0.1 10^3/uL (0.0-0.6); ABSOLUTE LYMPHOCYTES (AUTO) 0.8 10^3/uL (0.5-4.7); ABSOLUTE MONOCYTES (AUTO) 0.8 10^3/uL (0.1-1.4); ABSOLUTE NEUT (AUTO) 8.4 10^3/uL (1.7-8.2); BASOPHILS % (AUTO) 0.5 % (0-2); HEMATOCRIT 30.8 % (36.0-47.0); HEMOGLOBIN 10.2 g/dL (12.0-15.5); HGB HCT DIFFERENCE -0.2; MEAN CORPUSCULAR HEMOGLOBIN 30.2 pg (27.0-33.4); MEAN CORPUSCULAR HGB CONC 33.3 g/dL (32.0-36.0); MEAN CORPUSCULAR VOLUME 91 fl (80-97); MONOCYTES % (AUTO) 7.7 % (3-13); RED BLOOD COUNT 3.38 10^6/uL (3.72-5.28); RED CELL DISTRIBUTION WIDTH 12.9 % (11.5-14.0); SEGMENTED NEUTROPHILS % (AUTO) 82.8 % (42-78); WHITE BLOOD COUNT 10.2 10^3/uL (4.0-10.5)
[2016-12-01 17:37] LABS: PROTHROMBIN TIME 12.6 SEC (11.4-15.4)
[2016-12-01 17:38] LABS: PARTIAL THROMBOPLASTIN TIME 27.1 SEC (23.5-35.8)
[2016-12-01 17:48] LABS: ALANINE AMINOTRANSFERASE 46 U/L (9-52); ALKALINE PHOSPHATASE 294 U/L (38-126); ANION GAP 10 (5-19); ASPARTATE AMINO TRANSFERASE 29 U/L (14-36); BILIRUBIN,DIRECT 0.4 mg/dL (0.0-0.4); BILIRUBIN,TOTAL 0.6 mg/dL (0.2-1.3); BLOOD UREA NITROGEN 14 mg/dL (7-20); CALCIUM 9.3 mg/dL (8.4-10.2); CARBON DIOXIDE 30 mmol/L (22-30); CHLORIDE 98 mmol/L (98-107); GLUCOSE 93 mg/dL (75-110); POTASSIUM 4.6 mmol/L (3.6-5.0); SODIUM 137.5 mmol/L (137-145); TOTAL PROTEIN 5.6 g/dL (6.3-8.2)
[2016-12-01 17:49] LABS: CREATINE KINASE < 20 U/L (30-135)
--- NOTE | 2016-12-01 17:58 | EKG REPORT ---
SEVERITY:- NORMAL ECG - SINUS RHYTHM : Confirmed by: Shaniqua Rasmussen MD 01-Dec-2016 17:57:46
[2016-12-01 18:00] LABS: TROPONIN I < 0.012 ng/mL
--- NOTE | 2016-12-01 18:45 | RADIOLOGY REPORT (SQ) ---
EXAM DESCRIPTION: CTA CHEST COMPLETED DATE/TIME: 12/01/2016 6:22 pm REASON FOR STUDY: SOB, Hx NSCLC, worsening PEs? COMPARISON: 10/13/2016 TECHNIQUE: CT scan of the chest performed using helical scanning technique with dynamic intravenous contrast injection. Images reviewed with lung, soft tissue and bone windows. Reconstructed coronal and sagittal MPR images reviewed. Additional 3 dimensional post-processing performed to develop Maximal Intensity Projection images (MO P). All images stored on PACS. All CT scanners at this facility use dose modulation, iterative reconstruction, and/or weight based d osing when appropriate to reduce radiation dose to as low as reasonably achievable (ALARA). [facility]: Dose Right [facility]: CareDose [facility]: Dose Right [facility]: Teradose 4D [facility]: [place] CONTRAST TYPE AND DOSE: contrast/concentration: Isovue 370.00 mg/ml; Total Contrast Delivered: 73.0 ml; Total Saline Delivered: 99.9 ml RENAL FUNCTION: Creatinine 0.5 BUN 14 RADIATION DOSE: 24.24 . LIMITATIONS: None. FINDINGS: LUNGS AND PLEURA: There is a considerable left pleural effusion. There is associated atel ectasis in the left lower lobe. Right middle lobe or left lower lobe infiltrate cannot be ruled out. Centrilobular emphysematous changes are once again seen. There is the appearance of right hilar ma ss versus consolidation. AORTA AND GREAT VESSELS: No aneurysm or dissection. HEART: No pericardial effusion. PULMONARY ARTERIES: The small thrombi seen on the earlier CT with the stomach 10/13/2016 have resolved. No acute thrombus is seen. HILAR AND MEDIASTINAL STRUCTURES: No identified masses or abnormal nodes. HARDWARE: None in the chest. UPPER ABDOMEN: There are ill-defined low-density lesions in the liver that appear more prominent than on the earlier study. THYROID AND OTHER SOFT TISSUES: No masses. No adenopathy. BONES: No acute or significant finding. 3D MIPS: Confirm above findings. OTHER: No other significant finding. IMPRESSION: 1. There are no acute pulmonary emboli. Prior emboli have resolved. 2. There is increasing left pleural effusion and there is significant atelectasis in the left lower lobe. 3. An infiltrate cannot be ruled out in the right middle lobe or the left lower lobe. 4. There is increasing density extending from the right hilum. Consolidation versus mass. 5. There are areas of decreased attenuation in the liver that is somewhat ill-defined but more promi nent than on the prior study concerning for metastases. TECHNICAL DOCUMENTATION: JOB ID: [id number] Quality ID # [id number]: Final reports with documentation of one or more dose reduction techniques (e.g., Au tomated exposure control, adjustment of the mA and/or kV according to patient size, use of iterative reconstruction technique) 2010 [employer]- All Rights Reserved
[2016-12-01 22:10] VITALS: BP 131/73
== END 2016-12-01 21:30 | disposition home or self-care (01) ==
LOC: ER 13:02
DX: J90 Pleural effusion, not elsewhere classified (principal); R06.02 Shortness of breath; M54.5 Low back pain; I26.99 Other pulmonary embolism without acute cor pulmonale; Z85.118 Personal history of other malignant neoplasm of bronchus and lung; Z79.01 Long term (current) use of anticoagulants; Z99.81 Dependence on supplemental oxygen
CPT/HCPCS: 36415; 71020; 71275; 80053; 82550; 83605; 83880; 84484; 85025; 85610; 85730; 87040; 93005; 93010; 99285